=== PATIENT | female | born 1955 | race Caucasian/White ===

== ENCOUNTER 2024-11-29 03:43 | Emergency (ER) | payer MEDICARE, OTHER, SELFPAY ==
--- NOTE | ~2024-11-29 | CT_ITS ---
CT of the Abdomen and Pelvis: Indication: Pain, hematuria Technique: 2.5 mm axial scans were obtained through the abdomen and pelvis following intravenous adm inistration of 100 cc of Omnipaque 350. Dose reduction technique was used on this scan by utilizing a utomated exposure control and iterative reconstruction technique. The dose-length product (DLP) was 1 462.37 mGy-cm. Findings: Scans through the lung bases are unremarkable. Small hiatal hernia present with gastric la p band in place. The liver, spleen, pancreas, gallbladder, adrenals and kidneys are within normal limits. No evidence of aortic aneurysm. No lymphadenopathy. No bowel obstruction or bowel wall thickening. There is no evidence to suggest acute appendicitis. Images through the pelvis were performed. There is diffuse urinary bladder wall thickening. No pelvic mass seen. No ascites. Impression: Cystitis. Correlate with urinalysis. Reviewed, dictated and finalized at [facility]. Impression: Cystitis. Correlate with urinalysis.
--- OUTSIDE RECORDS SUMMARY | 2024-11-29 03:45 | XMS_ITS | Encounter Summary ---
Author Organization [facility] Facility Care Team Providers Care [employer] Name Role Phone Elyssa Liriano MD Primary Care Provider [phone] Encounter Details Date Type Department Care Team (Latest Contact Info) Description 09/17/2015 Orders Only [facility] Provider, MD Alicia [address] [place] [id number] Social History Tobacco Use Types Packs/Day Years Used Date Smoking Tobacco: Never Assessed Comments Unknown Sex and Gender Information Value Date Recorded Sex Assigned at Not on file Legal Sex Female 1:25 PM CDT Gender Identity Not on file Sexual Orientation Not on file documented as of this encounter Plan of Treatment Not on file documented as of this encounter Procedures Procedure Name Priority Date/Time Associated Diagnosis Comments SCAN - LABS 09/20/2015 12:00 AM CDT documented in this encounter Results * SCAN - LABS (09/20/2015 12:00 AM CDT) Narrative 09/20/2015 12:00 AM CDT Ordered by an unspecified provider. 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 04/11/2020 04/11/2020 08/09/2020 3:05 AM C DT documented as of this encounter Care Teams [employer] Relationship Specialty Start Date End Date Elyssa Liriano MD [address] [place] [address] [place] [id number] PCP - General 09/10/17 documented as of this encounter
--- OUTSIDE RECORDS SUMMARY | 2024-11-29 03:45 | XMS_ITS | Referral Summary ---
Author Organization [facility] Address [address] [place] [id number] Care Team Providers Care Senior Quality Technician Name Role Phone Elyssa Liriano MD Primary Care Provider [phone] Encounters Date Type Department Care Team Description 10/26/2024 10:30 AM CDT Office Visit [facility] Internal Medicine [address] [place] [address] [address] [place] [address] Elyssa Liriano MD CKD (chronic kidney disease), stage II (Primary Dx); Dyslipidemia; Hypertensive kidney disease with stage 2 chronic kidney disease; Morbid obesity with BMI of 40.0-44.9, adult ([facility]); ANGÉLICA (obstructive sleep apnea); Type 2 diabetes mellitus with stage 2 chronic kidney disease, without long-term current use of insulin ([facility]); BMI 39.0-39.9,adult from Last 3 Months Allergies Active Allergy Reactions Criticality Noted Date Comments Acetaminophen Itching Low 10/13/2018 itching Hydrocodone-Acetaminophen Itching Low 10/13/2018 itching Medications multivitamin tablet daily Active cholecalciferol (VITAMIN D-3) 2000 unit capsule Take 1 capsule (2,000 Units total) by mouth daily Active cyanocobalamin, vitamin B-12, 1,000 mcg tablet extended release daily Active fexofenadine HCl (KECIA ORAL) Take by mouth Active aspirin 81 mg enteric coated tablet Take 1 tablet (81 mg total) by mouth daily Active atorvastatin (LIPITOR) 20 mg tablet Take 1 tablet (20 mg total) by mouth nightly 100 tablet 1 10/26/2024 Active escitalopram (LEXAPRO) 20 mg tablet Take 1 tablet (20 mg total) by mouth daily 100 tablet 1 10/26/2024 Active semaglutide (OZEMPIC) 0.25 mg or 0.5 mg (2 mg/3 mL) pen injector injection Inject 0.5 mg under the skin once a week 9 mL 1 10/26/2024 Active Active Problems Problem Noted Date Diagnosed Date Cognitive impairment 05/05/2024 Assessment & Plan (05/05/2024 11:46 AM FOOD CART ATTENDANT): Patient with memory issues related to minor issues. Mini-mental exam is 28/30. The patient does not have dementia. It is possible that she has cognitive impairment. Continue to observe Type 2 diabetes mellitus wit h stage 2 chronic kidney disease, without long-term current use of insulin 05/04/2024 Assessment & Plan (10/26/2024 7:31 AM CDT): Hemoglobin A1c 6.5. Continue Ozempic and diet and exercise. Patient needs to have annual eye exam. Assessment & Plan (05/05/2024 11:47 AM FOOD CART ATTENDANT): Patient with new onset diabetes mellitus. We had lengthy discussion about the importance of diet and exercise and weight loss. Patient need not to exceed 2000 calorie daily. She will be started on Ozempic 0.25 mg subQ once a week and increase the dose to 0.5 mg subQ once a week. Side effects explained. Patient needs to have annual eye exam. Repeat blood work before next visit Laceration of left middle fi nger without foreign body without damage to nail 04/19/2024 Assessment & Plan (05/05/2024 11:47 AM FOOD CART ATTENDANT): Healed Assessment & Plan (04/19/2024 9:15 AM FOOD CART ATTENDANT): Patient with laceration to the left middle and ring fingers. The wounds are clean with no erythema or swelling or tenderness or discharge. Seventeen stitches were removed. Recurrent major depressive disorder, in full rem ission 11/08/2023 Assessment & Plan (11/09/2023 11:57 AM CDT): Controlled on Lexapro Pain of right hip 09/30/2022 Assessment & Plan (09/30/2022 3:46 PM CDT): Patient with right hip pain after a fall. She has localized tenderness in the area. She is ambulating without difficulty. Will start her on Mobic 15 mg daily. Patient will follow-up with the chiropractor. The patient was advised to call us back in couple of weeks if she has persistent symptoms. Preoperative clearance 05/07/2022 Assessment & Plan (05/07/2022 4:48 PM FOOD CART ATTENDANT): Patient is mild risk for surgery. She is clear for plantar fasciitis surgery. Right sided sciatica 02/24/2021 Assessment & Plan (03/04/2021 12:46 PM CDT): Patient will be started on physical therapy. She will continue baclofen as needed. Patient to call us for persistent pain. Morbid obesity with BMI of 40.0-44.9, adult 11/21 Assessment & Plan (10/26/2024 7:31 AM CDT): BMI Follow-up includes: nutrition counseling. The patient was advised to exercise 5 times a week for 30 minutes each time. We discussed low calorie diet. Discussed lifestyle changes. Assessment & Plan (05/05/2024 7:45 AM FOOD CART ATTENDANT): BMI Follow-up includes: nutrition counseling. The patient was advised to exercise 5 times a week for 30 minutes each time. We discussed low calorie diet. Discussed lifestyle changes. Assessment & Plan (11/09/2023 11:56 AM CDT): BMI Follow-up includes: nutrition counseling. The patient was advised to exercise 5 times a week for 30 minutes each time. We discussed low calorie diet. Discussed lifestyle changes. Assessment & Plan (08/28/2022 7:55 AM CDT): BMI Follow-up includes: nutrition counseling. The patient was advised to exercise 5 times a week for 30 minutes each time. We discussed low calorie diet. Discussed lifestyle changes. Assessment & Plan (01/14/2022 12:35 PM CDT): BMI Follow-up includes: nutrition counseling. The patient was advised to exercise 5 times a week for 30 minutes each time. We discussed low calorie diet. Discussed lifestyle changes. Assessment & Plan (10/03/2021 10:44 AM CDT): BMI Follow-up includes: nutrition counseling. The patient was advised to exercise 5 times a week for 30 minutes each time. We discussed low calorie diet. Discussed lifestyle changes. Assessment & Plan (07/03/2021 11:49 AM FOOD CART ATTENDANT): BMI Follow-up includes: nutrition counseling. The patient was advised to exercise 5 times a week for 30 minutes each time. We discussed low calorie diet. Discussed lifestyle changes. Assessment & Plan (03/04/2021 12:48 PM CDT): BMI Follow-up includes: nutrition counseling. The patient was advised to exercise 5 times a week for 30 minutes each time. We discussed low calorie diet. Discussed lifestyle changes. Assessment & Plan (12/03/2020 11:36 AM CDT): BMI Follow-up includes: nutrition counseling. The patient was advised to exercise 5 times a week for 30 minutes each time. We discussed low calorie diet. Discussed lifestyle changes. Skin rash 09/02/2020 Assessment & Plan (09/02/2020 11:37 AM CDT): Patient has diffuse maculopapular rash which sounds like allergic reaction. She received Kenalog 40 mg IM and started on prednisone in a tapering does and continue Benadryl as needed for the itching. The patient was advised to call if she has persistent symptoms Sore throat 09/02/2020 Assessment & Plan (09/02/2020 11:39 AM CDT): Throat examination is completely normal. Patient can take antihistamine as needed. Patient to call if she has persistent symptoms or if she develops fever or other symptoms. Dyspnea 06/07/2020 Assessment & Plan (06/07/2020 2:35 PM FOOD CART ATTENDANT): The patient did have PFTs performed which were normal. She did not desaturate while walking. I discussed the PFT results with her. She is improving slowly. ANGÉLICA (obstructive sleep apnea) 05/10/2020 Assessment & Plan (10/26/2024 7:31 AM CDT): Patient uses CPAP machine Assessment & Plan (11/09/2023 11:56 AM CDT): Patient uses CPAP machine Assessment & Plan (08/28/2022 7:55 AM CDT): Patient uses CPAP machine Assessment & Plan (10/03/2021 10:17 AM CDT): Patient uses CPAP machine on regular basis Assessment & Plan (07/03/2021 11:48 AM FOOD CART ATTENDANT): Advised to follow-up with the sleep specialist and use CPAP machine on regular basis Assessment & Plan (03/04/2021 12:46 PM CDT): Patient is followed by the sleep specialist Assessment & Plan (12/03/2020 11:36 AM CDT): Followed by the sleep specialist Assessment & Plan (06/07/2020 2:34 PM FOOD CART ATTENDANT): The patient was diagnosed with ANGÉLICA over 8 years ago and has not used CPAP in recent memory. I will order a home sleep test to confirm the diagnosis and then obtain an auto titrating CPAP unit for her. Assessment & Plan (05/10/2020 10:33 AM FOOD CART ATTENDANT): The patient will need a nocturnal polysomnogram with split night protocol if necessary, no MSLT. If insurance not approve in-lab sleep study the patient may proceed with a home sleep test. The patient would like to hold off on this testing at this time. COVID-19 virus infection 05/10/2020 Assessment & Plan (06/20/2020 4:57 PM FOOD CART ATTENDANT): Managed by the crab picker Assessment & Plan (06/07/2020 2:34 PM FOOD CART ATTENDANT): The patient continues to have a dry cough and her fatigue is still present but improving. Assessment & Plan (05/10/2020 10:33 AM FOOD CART ATTENDANT): I have ordered a PFT, echo and 6 minutes walk test. Varicose veins of both lower extremities 020 Assessment & Plan (10/26/2019 11:13 AM CDT): Asymptomatic Hypertensive kidney disease with stage 2 chronic kidney disease 01/24/2019 Assessment & Plan (10/26/2024 7:30 AM CDT): Continue low-salt diet and encouraged weight loss Assessment & Plan (05/05/2024 7:45 AM FOOD CART ATTENDANT): Continue low-salt diet and encouraged weight loss Assessment & Plan (11/09/2023 11:56 AM CDT): Continue low-salt diet and encouraged weight loss Assessment & Plan (08/28/2022 7:55 AM CDT): Continue low-salt diet and encouraged weight loss Assessment & Plan (05/07/2022 4:26 PM FOOD CART ATTENDANT): Continue low-salt diet Assessment & Plan (01/14/2022 12:35 PM CDT): Controlled without medications. Encouraged low-salt diet and weight loss Assessment & Plan (10/03/2021 10:44 AM CDT): Blood pressure is stable without medications. Discussed the importance of low- salt diet and exercise and weight loss Assessment & Plan (07/03/2021 11:49 AM FOOD CART ATTENDANT): Stable without medications. Continue low-salt diet Assessment & Plan (03/04/2021 12:45 PM CDT): Continue current medications. Discussed low-salt diet. Discussed exercise on regular basis. Will continue to monitor Assessment & Plan (12/03/2020 11:36 AM CDT): Blood pressure is stable without medications. Continue low-salt diet and we discussed weight loss Assessment & Plan (01/25/2020 12:05 PM CDT): Blood pressure is controlled without medications. Continue low-salt diet Assessment & Plan (10/26/2019 11:12 AM CDT): Continue low-salt diet and we discussed weight loss with diet and exercise. Assessment & Plan (07/26/2019 10:02 AM FOOD CART ATTENDANT): Stable without medications Assessment & Plan (04/26/2019 10:46 AM FOOD CART ATTENDANT): Controlled without medications Assessment & Plan (01/24/2019 10:23 AM CDT): Continue current medications. Discussed low-salt diet. Discussed exercise on regular basis. Will continue to monitor Overweight 01/24/2019 Assessment & Plan (04/26/2019 10:47 AM FOOD CART ATTENDANT): The patient lost more weight with her diet and she feels great. Assessment & Plan (01/24/2019 10:23 AM CDT): The patient lost large amount of weight on her current weight loss program and she feels well. I encouraged her to continue with the program and we will continue to monitor. Bronchitis 10/21/2018 Assessment & Plan (10/21/2018 12:50 PM CDT): Patient has persistent cough. We will start her on Robitussin AC and prednisone in a tapering does and she will call for persistent symptoms Former smoker 2018 Overview (10/18/2018): Used to smoke pack of cigarettes a day. Smoked for 6 years. Quit smoking in 1984. Anxiety 10/15/2017 Assessment & Plan (01/14/2022 12:34 PM CDT): Controlled on Lexapro Assessment & Plan (10/21/2018 12:49 PM CDT): Controlled on current medication CKD (chronic kidney disease), stage II 8 Assessment & Plan (10/26/2024 7:30 AM CDT): Renal function is stable. Continue to monitor Assessment & Plan (05/05/2024 7:45 AM FOOD CART ATTENDANT): Renal function is stable. Continue to monitor Assessment & Plan (11/09/2023 11:56 AM CDT): Renal function is stable. Continue to monitor Assessment & Plan (05/07/2022 4:25 PM FOOD CART ATTENDANT): Renal function is stable. Continue to monitor Assessment & Plan (01/14/2022 12:34 PM CDT): Stable mild chronic kidney disease Assessment & Plan (10/03/2021 10:17 AM CDT): Stable mild chronic kidney disease Assessment & Plan (03/04/2021 12:45 PM CDT): Renal function is stable Assessment & Plan (10/26/2019 11:11 AM CDT): Mild chronic kidney disease with no change in will continue to monitor Assessment & Plan (07/26/2019 10:02 AM FOOD CART ATTENDANT): Mild chronic kidney disease with no change Assessment & Plan (04/26/2019 10:46 AM FOOD CART ATTENDANT): Mild chronic kidney disease and will continue to monitor Assessment & Plan (01/24/2019 10:22 AM CDT): Mild chronic kidney disease and will continue to monitor Assessment & Plan (10/21/2018 12:49 PM CDT): No change and will continue to monitor Low back pain 06/14/2017 Assessment & Plan (11/26/2022 2:00 PM CDT): Patient with right lower back pain with tenderness over the right infraspinatus area for the last month after a recent fall. Will obtain x-ray of the lumbar area. Will start her on baclofen 10 mg b.i.d. p.r.n.. Side effects were explained. Will start her on physical therapy. Patient to call back in 1 month for persistent symptoms and will see if we need to proceed with MRI at that point. Assessment & Plan (01/24/2019 10:22 AM CDT): Asymptomatic Primary osteoarthritis of right shoulder 017 Attention-deficit hyperactiv ity disorder, predominantly inattentive type 09/02/2015 Assessment & Plan (11/09/2023 11:56 AM CDT): Patient is retired. She does not take the medication. She does not feel she needs to be on medications at this time. She is asymptomatic Assessment & Plan (08/28/2022 7:55 AM CDT): Controlled on Concerta Assessment & Plan (05/07/2022 4:25 PM FOOD CART ATTENDANT): Controlled on Concerta Assessment & Plan (01/14/2022 12:34 PM CDT): Resume Concerta Assessment & Plan (10/03/2021 10:43 AM CDT): Patient stop Concerta and she feels fine without the medication Assessment & Plan (07/03/2021 11:49 AM FOOD CART ATTENDANT): Controlled on Concerta Assessment & Plan (03/04/2021 12:45 PM CDT): Controlled on Concerta Assessment & Plan (12/03/2020 11:36 AM CDT): Controlled on Concerta Assessment & Plan (09/02/2020 11:38 AM CDT): Controlled on Concerta Assessment & Plan (06/20/2020 4:57 PM FOOD CART ATTENDANT): Continue Concerta Assessment & Plan (01/25/2020 12:05 PM CDT): Controlled on Concerta. Assessment & Plan (10/26/2019 11:11 AM CDT): Controlled on Concerta Assessment & Plan (07/26/2019 10:02 AM FOOD CART ATTENDANT): Controlled on Concerta Assessment & Plan (04/26/2019 10:46 AM FOOD CART ATTENDANT): The patient noticed decrease in her attention and concentration. We will increase Concerta to 36 mg daily. Will continue to monitor. Assessment & Plan (01/24/2019 10:22 AM CDT): Controlled on Concerta Assessment & Plan (10/21/2018 12:49 PM CDT): Controlled on Concerta and will continue to monitor Dyslipidemia 09/02/2015 Assessment & Plan (10/26/2024 7:30 AM CDT): Controlled on current medications. Continue low-fat diet. Will continue to monitor . Assessment & Plan (05/05/2024 7:45 AM FOOD CART ATTENDANT): Controlled on current medications. Continue low-fat diet. Will continue to monitor . Assessment & Plan (11/09/2023 11:56 AM CDT): Controlled on current medications. Continue low-fat diet. Will continue to monitor . Assessment & Plan (08/28/2022 7:55 AM CDT): Controlled on current medications. Continue low-fat diet. Will continue to monitor . Assessment & Plan (05/07/2022 4:25 PM FOOD CART ATTENDANT): Controlled on current medications. Continue low-fat diet. Will continue to monitor . Assessment & Plan (01/14/2022 12:34 PM CDT): Controlled on current medications. Continue low-fat diet. Will continue to monitor . Assessment & Plan (10/03/2021 10:17 AM CDT): Controlled on current medications. Continue low-fat diet. Will continue to monitor . Assessment & Plan (07/03/2021 11:49 AM FOOD CART ATTENDANT): Controlled on current medications. Continue low-fat diet. Will continue to monitor . Assessment & Plan (03/04/2021 12:46 PM CDT): Controlled on current medications. Continue low-fat diet. Will continue to monitor . Assessment & Plan (12/03/2020 11:36 AM CDT): Controlled on current medications. Continue low-fat diet. Will continue to monitor . Assessment & Plan (09/02/2020 11:37 AM CDT): Controlled on current medications. Continue low-fat diet. Will continue to monitor . Assessment & Plan (06/20/2020 4:57 PM FOOD CART ATTENDANT): Controlled on current medications. Continue low-fat diet. Will continue to monitor . Assessment & Plan (01/25/2020 12:05 PM CDT): Controlled on current medications. Continue low-fat diet. Will continue to monitor . Assessment & Plan (10/26/2019 11:12 AM CDT): Controlled on current medications. Continue low-fat diet. Will continue to monitor . Assessment & Plan (07/26/2019 10:40 AM FOOD CART ATTENDANT): LDL is 68. We will lower atorvastatin to 20 mg q.h.s.. Assessment & Plan (04/26/2019 10:46 AM FOOD CART ATTENDANT): Controlled on current medications. Continue low-fat diet. Will continue to monitor . Assessment & Plan (01/24/2019 10:22 AM CDT): Controlled on current medications. Continue low-fat diet. Will continue to monitor . Assessment & Plan (10/21/2018 12:49 PM CDT): Controlled on current medications. Continue low-fat diet. Will continue to monitor . Immunizations Immunization Administration Dates Next Due DTaP 04/07/2016,01/29/2016 Influenza, Quadrivalent, Ivelisse l Culture-based MDCK, Preservative Free, Antibiotic Free, Intramuscular 03/23/2022 Influenza, Quadrivalent, Spl it, Intramuscular 04/05/2017,04/07/2016 Influenza, Quadrivalent, Spl it, Preservative Free, Intramuscular 03/04/2021 Influenza, Trivalent, High D ose, Split, Preservative Free, Intramuscular 01/18/2024 Influenza, Unspecified 04/02/2023(Deferr ed: Patient decision),02/21/2019 Pfizer SARS-CoV-2 Monovalent Vaccination (12+ Yrs) PURPLE 10/06/2020,09/16/2020 Pneumococcal Conjugate Pcv20 11/04/2023 RSV Vaccine, Pref, Recombina nt, Subunit, Adjuvanted, PF, IM (Arexvy) 01/18/2024 Tdap 01/29/2016,01/01/2006 ZOSTER Recombinant 04/30/2022,02/19/2022 Social History Tobacco Use Types Packs/Day Years Used Date Smoking Tobacco: Former Cigarettes Q uit: 1983 Passive Smoke Exposure: Past Smokeless Tobacco: Never Tobacco Cessation:Counseling Given: Not Answered Alcohol Use Standard Drinks/Week Comments Yes 0 (1 standard drink = 0.6 oz pur e alcohol) socially AUDIT-C Answer Date Recorded Q1: How often do you have a drink containing alc ohol? Monthly or less 10/26/2024 Q2: How many drinks containi ng alcohol do you have on a typical day when you are drinking? 1 or 2 10/26/2024 Q3: How often do you have si x or more drinks on one occasion? Never 10/26/2024 PHQ-2 Answer Date Recorded PHQ-2 Total Score (If total score is 3 or more points, staff should administer the PHQ-9) 0 05/05/2024 Comments No Sex and Gender Information Value Date Recorded Sex Assigned at Not on file Legal Sex Female 1:25 PM CDT Gender Identity Not on file Sexual Orientation Not on file Last Filed Vital Signs Vital Sign Reading Time Taken Comments Blood Pressure 128/80 10/26/2024 10:12 AM CDT Pulse 63 10/26/2024 10:12 AM CDT Temperature 36.1 C (97 F) 10/26/2024 10:12 AM CDT Respiratory Rate 18 10/26/2024 10:12 AM CDT Oxygen Saturation 97% 10/26/2024 10:12 AM CDT Inhaled Oxygen Concentration - - Weight 117.9 kg (260 lb) 10/26/2024 10:12 AM CDT Height 172.7 cm (5' 8) 10/26/2024 10:12 AM CDT Body Mass Index 39.53 10/26/2024 10:12 AM CDT Plan of Treatment Not on file Procedures Procedure Name Priority Date/Time Associated Diagnosis Comments ERYTHROCYTE SEDIMENTATION RATE Routine 10/23/2024 9:44 AM CDT VITAMIN B12 Routine 10/23/2024 9:44 AM CDT TSH Routine 10/23/2024 9:44 AM CDT T4, FREE Routine 10/23/2024 9:44 AM CDT ALBUMIN CREATININE RATIO, URINE Routine 10/23/2024 9:44 AM CDT Type 2 diabetes mellitus with stage 2 chronic kidney disease, without long-term current use of insulin (HCC) CBC WITH AUTO DIFFERENTIAL Routine 10/23/2024 9:44 AM CDT Type 2 diabetes mellitus with stage 2 chronic kidney disease, without long-term current use of insulin (HCC) COMPREHENSIVE METABOLIC PANEL Routine 10/23/2024 9:44 AM CDT Type 2 diabetes mellitus with stage 2 chronic kidney disease, without long-term current use of insulin (HCC) HEMOGLOBIN A1C Routine 10/23/2024 9:44 AM CDT Type 2 diabetes mellitus with stage 2 chronic kidney disease, without long-term current use of insulin (HCC) LIPID PANEL Routine 10/23/2024 9:44 AM CDT Dyslipidemia SCREENING MAMMOGRAM BILATERAL W JOSE CARLOS Schedule Routine, Read Routine (OP Routine) 04/25/2024 7:20 AM FOOD CART ATTENDANT Screening mammogram for breast cancer DEXA AXIAL SKELETON BONE DENSITY 1 OR MORE SITES Schedule Routine, Read Routine (OP Routine) 11/24/2023 11:16 AM CDT Postmenopausal HEPATITIS C ANTIBODY Routine 03/04/2021 11:16 AM CDT Encounter for hepatitis C screening test for low risk patient COLONOSCOPY Routine 12/29/2019 THINPREP PAP Routine 07/10/2014 2:00 PM FOOD CART ATTENDANT from Last 3 Months or Most Recently Relevant to Health Maintenance Results * (ABNORMAL) CBC with auto differential (10/23/2024 9:44 AM CDT) WBC 8.3 3.8 - 10.8 Thousand/u L [facility] RBC, POC 5.47(H) 3.80 - 5.10 Million/uL [facility] Hgb 15.5 11.7 - 15.5 g/dL [facility] Hct 51.3(H) 35.0 - 45.0 % [facility] MCV 93.8 80.0 - 100.0 fL [facility] MCH 28.3 27.0 - 33.0 pg [facility] MCHC 30.2(L) 32.0 - 36.0 g/dL [facility] Comment: For adults, a slight decrease in the calculated MCHC value (in the range of 30 to 32 g/dL) is most likely not clinically significant; however, it should be interpreted with caution in correlation with other red cell parameters and the patient's clinical condition. Rdw 14.4 11.0 - 15.0 % [facility] Neutrophils, abs 4,067 1,500 - 7,800 cells/uL [facility] Lymphocytes, abs 2,913 850 - 3,900 cells/uL [facility] Monocyte abs 606 200 - 950 cells/uL [facility] Eosinophils, abs 647(H) 15 - 500 cells/uL [facility] Basophils, abs 66 0 - 200 cells/uL [facility] Neutrophils 49 % [facility] Lymphocyte pct 35.1 % [facility] Monocytes 7.3 % [facility] Eosinophils 7.8 % [facility] Basophils 0.8 % [facility] Platelets TNP Thousand/u L [facility] Comment: TEST(S) NOT PERFORMED: PLATELET COUNT MPV Unable to report due to significant platelet clumping. Platelet estimate appears normal. Blood 10/23/2024 9:44 AM CDT 10/23/2024 9:45 AM CDT Narrative [facility] - 10/24/2024 8:42 AM CDT FASTING:YES FASTING: YES Elyssa Liriano MD LAB BLOOD ORDERABLES Final Result [facility] [address] [id number] * Albumin Creatinine Ratio, Urine (10/23/2024 9:44 AM CDT) Pathologist [facility] Creatinine, ur 174 20 - 275 mg/dL [facility] Microalbumin, ur 1.2 See Note: mg/dL [facility] Comment: Reference Range: Reference Range Not established Microalbumin/creat ratio 7 <30 mg/g creat [facility] Comment: The ADA defines abnormalities in albumin excretion as follows: Albuminuria Category Result (mg/g creatinine) Normal to Mildly increased <30 Moderately increased 30-299 Severely increased > OR = 300 The ADA recommends that at least two of three specimens collected within a 3-6 month period be abnormal before considering a patient to be within a diagnostic category. Urine 10/23/2024 9:44 AM CDT 10/23/2024 9:45 AM CDT Narrative [facility] - 10/24/2024 8:42 AM CDT FASTING:YES FASTING: YES Elyssa Liriano MD LAB URINE ORDERABLES Final Result Performing Organization Address [facility] de Phone Number [facility] [address] [place] [address] * Erythrocyte sedimentation rate (10/23/2024 9:44 AM CDT) Erythrocyte sedimentation rate 2 < OR = 30 mm/h [facility] 10/23/2024 9:44 AM CDT 10/23/2024 9:45 AM CDT Narrative QUEST - 10/24/2024 8:42 AM CDT FASTING:YES FASTING: YES Elyssa Liriano MD LAB BLOOD ORDERABLES Final Result Performing Organization Address [facility] de Phone Number QUEST [facility] [address] [place] [address] * TSH (10/23/2024 9:44 AM CDT) TSH 1.22 0.40 - 4.50 mIU/L [facility] 10/23/2024 9:44 AM CDT 10/23/2024 9:45 AM CDT Narrative QUEST - 10/24/2024 8:42 AM CDT FASTING:YES FASTING: YES Elyssa Liriano MD LAB BLOOD ORDERABLES Final Result Performing Organization Address [facility]/ZIP Co de Phone Number QUEST [facility] [address] [facility] [place], [place] [address] * T4, free (10/23/2024 9:44 AM CDT) [facility] T4 1.1 0.8 - 1.8 ng/dL [facility] 10/23/2024 9:44 AM CDT 10/23/2024 9:45 AM CDT Narrative QUEST - 10/24/2024 8:42 AM CDT FASTING:YES FASTING: YES Elyssa Liriano MD LAB BLOOD ORDERABLES Final Result Performing Organization Address City/[facility] Co de Phone Number QUEST [facility] [address] [place] [address] * (ABNORMAL) Hemoglobin A1c (10/23/2024 9:44 AM CDT) [facility] Hgb A1C 6.5(H) <5.7 % of total Hgb [facility] [place] Comment: For someone without known diabetes, a hemoglobin A1c value of 6.5% or greater indicates that they may have diabetes and this should be confirmed with a follow-up test. For someone with known diabetes, a value <7% indicates that their diabetes is well controlled and a value greater than or equal to 7% indicates suboptimal control. A1c targets should be individualized based on duration of diabetes, age, comorbid conditions, and other considerations. Currently, no consensus exists regarding use of hemoglobin A1c for diagnosis of diabetes for children. Blood 10/23/2024 9:44 AM CDT 10/23/2024 9:45 AM CDT Narrative QUEST - 10/24/2024 8:42 AM CDT FASTING:YES FASTING: YES Elyssa Liriano MD LAB BLOOD ORDERABLES Final Result [facility] [address] [place] [address] * Vitamin B12 (10/23/2024 9:44 AM CDT) Vitamin B12 428 200 - 1,100 pg/mL [facility] 10/23/2024 9:44 AM CDT 10/23/2024 9:45 AM CDT Narrative QUEST - 10/24/2024 8:42 AM CDT FASTING:YES FASTING: YES Elyssa Liriano MD LAB BLOOD ORDERABLES Final Result [facility] [address] [facility] [place] [address] * (ABNORMAL) Lipid panel (10/23/2024 9:44 AM CDT) Pathologist [facility] Cholesterol 164 <200 mg/dL [facility] HDL 53 > OR = 50 mg/dL [facility] Triglycerides 188(H) <150 mg/dL [facility] LDL 83 mg/dL (calc) [facility] Comment: Reference range: <100 Desirable range <100 mg/dL for primary prevention; <70 mg/dL for patients with CHD or diabetic patients with > or = 2 CHD risk factors. LDL-C is now calculated using the Eusebio-Ray calculation, which is a validated novel method providing better accuracy than the Friedewald equation in the estimation of LDL-C. Eusebio LAY et al. DIMPLE. 2013;310(19): 7208-6178 (http://education.[employer].RackWare/faq/MRT041) Chol/HDL ratio 3.1 <5.0 (calc) [facility] Non-HDL, (LDL+VLDL) 111 <130 mg/dL (calc) [facility] Comment: For patients with diabetes plus 1 major ASCVD risk factor, treating to a non-HDL-C goal of <100 mg/dL (LDL-C of <70 mg/dL) is considered a therapeutic option. Blood 10/23/2024 9:44 AM CDT 10/23/2024 9:45 AM CDT Narrative QUEST - 10/24/2024 8:42 AM CDT FASTING:YES FASTING: YES us Elyssa Liriano MD LAB BLOOD ORDERABLES Final Result [facility] [address] [place] [address] * (ABNORMAL) Comprehensive metabolic panel (10/23/2024 9:44 AM CDT) Glucose 157(H) 65 - 99 mg/dL [facility] Comment: Fasting reference interval For someone without known diabetes, a glucose value >125 mg/dL indicates that they may have diabetes and this should be confirmed with a follow-up test. BUN 16 7 - 25 mg/dL [facility] Creatinine 0.93 0.50 - 1.05 mg/dL [facility] eGFR 67 > OR = 60 mL/min/1.7 3m2 [facility] BUN/creat ratio SEE NOTE: 6 - 22 (calc) [facility] Comment: Not Reported: BUN and Creatinine are within reference range. Sodium 138 135 - 146 mmol/L [facility] Potassium, pl 4.6 3.5 - 5.3 mmol/L [facility] Chloride 101 98 - 110 mmol/L [facility] CO2 26 20 - 32 mmol/L [facility] Calcium 9.7 8.6 - 10.4 mg/dL [facility] Protein, sr 7.0 6.1 - 8.1 g/dL [facility] Albumin 4.5 3.6 - 5.1 g/dL [facility] GLOBULIN 2.5 1.9 - 3.7 g/dL (calc) [facility] Alb/glob ratio 1.8 1.0 - 2.5 (calc) [facility] Bilirubin, total 0.6 0.2 - 1.2 mg/dL [facility] Alk phos 34(L) 37 - 153 U/L [facility] AST 26 10 - 35 U/L [facility] ALT (SGPT) 24 6 - 29 U/L [facility] Blood 10/23/2024 9:44 AM CDT 10/23/2024 9:45 AM CDT Narrative QUEST - 10/24/2024 8:42 AM CDT FASTING:YES FASTING: YES Elyssa Liriano MD LAB BLOOD ORDERABLES Final Result [facility] [address] [facility] [place] [address] * Screening Mammogram Bilateral W Jose Carlos (04/25/2024 7:20 AM FOOD CART ATTENDANT) Anatomical Region Laterality Modality Breast Bilateral Mammography Impressions 04/25/2024 8:54 AM FOOD CART ATTENDANT BI-RADS ATLAS category (overall): 1 - Negative There is no mammographic evidence of malignancy. A 1 year screening mammogram is recommended. The patient has been or will be contacted. We recommend annual screening mammography for women at average risk of breast cancer beginning at age 40, based on guidelines of the [place] [employer] (ACR Practice Parameter for the Performance of Screening and Diagnostic Mammography) and [place] [employer]. For women with and elevated risk of breast cancer, please refer to the ACR Practice Parameter for specific screening recommendations. The patient will be entered into a reminder system with a target due date of 1 year for her next screening exam. Narrative 04/25/2024 8:54 AM FOOD CART ATTENDANT Screening Mammogram Bilateral W Jose Carlos: 04/25/24 The study was acquired using full field digital technology and interpreted from soft copy. 2D digital mammographic views, as well as 3D digital tomosynthesis were performed in the CC and MLO projections. CLINICAL: Screening mammogram for breast cancer. No relevant medical history has been documented for this patient. History of breast cancer in Mother, Sister. COMPARISONS: 04/20/2023 Screening Mammogram Bilateral W Jose Carlos 01/19/2022 Screening Mammogram Bilateral W Jose Carlos 11/22/2020 Screening Mammogram Bilateral W Jose Carlos 09/30/2018 Screening Mammogram Bilateral W Jose Carlos 08/26/2017 Screening Mammogram Bilateral W Jose Carlos BREAST TISSUE: There are scattered areas of fibroglandular density. FINDINGS: No suspicious masses, suspicious calcifications, or other suspicious findings are seen within either breast. There has been no suspicious change. Elyssa Liriano MD IM MAMMO PROCEDURES Final Result * Dexa Axial Skeleton Bone Density 1 or 2 Site (11/24/2023 11:16 AM CDT) Anatomical Region Laterality Modality Body N/A Mammography 11/24/2023 11:5 2 AM CDT Narrative 11/24/2023 11:54 AM CDT EXAM DESCRIPTION: DEXA AXIAL SKELETON BONE DENSITY 1 OR MORE SITES REASON FOR STUDY: 68 y/o year old F with given history of: Post menopausal status. History of parent with hip fracture and 3+ alcoholic drinks per day. Patient takes vitamin-D. Tank Cleaner/Model: Earth Sky A (S/N [id number]) CLINICAL INFORMATION: Current height: 68 inches Maximum height: 68.5 inches Weight: 268 pounds Risk factors: Parent with hip fracture and drinking 3+ alcoholic drinks per day. COMPARISON: None available. FINDINGS: Left forearm Radius 33% BMD is 0.747 g/cm2 T-score is 0.9 LEFT HIP: Total BMD is 1.185 g/cm2 T-score is 2.0 Femoral neck BMD is 0.909 g/cm2 T-score is 0.5 FRAX: FRAX not reported due to T-scores of hip, femoral neck and/or spine being at or above -1.0 (Normal). IMPRESSION: Normal bone mass REFERENCE: Bone mineral density: T-Score: Normal (T-score above or = -1.0) Low bone mass (T-score between -1.0 and -2.5) replaces the previously used term osteopenia Osteoporosis (T-score = or below -2.5) Z-Score: Within the expected range for age (Z-score above -2.0) Below the expected range for age (Z-score is -2.0 or below) Please see below follow up recommendations. Medical evaluation for secondary causes of low bone mineral density may be appropriate. FRAX is a World Health Organization validated fracture risk assessment tool that calculates a person's 10 year probability of a major osteoporosis related fracture and hip fracture. According to the National Osteoporosis Foundation guidelines, postmenopausal women and men age 50 or older with low bone mass and a 10 year probability of a major osteoporosis related fracture = or greater than 20% or a 10 year probability of a hip fracture = or greater than 3% should be considered for pharmacological treatment for the prevention of osteoporosis. For further information, including treatment recommendations, please refer to the 2019 ISCD Official Positions (http://www.iscd.org) and the NOF's Clinician's Guide to Prevention and Treatment of Osteoporosis (http://www.nof.org/professionals/clinical-guidelines) THIS IS AN ELECTRONICALLY VERIFIED FINAL REPORT 11/24/2023 11:54 AM - Electronically signed by Zoya Andre M.D. TW: Report ID: [id number] Reading Location: [place] [address] Procedure Note Zoya Andre MD - 11/24/2023 EXAM DESCRIPTION: DEXA AXIAL SKELETON BONE DENSITY 1 OR MORE SITES REASON FOR STUDY: 68 y/o year old F with given history of: Post menopausal status. History of parent with hip fracture and 3+ alcoholic drinks per day. Patient takes vitamin-D. Tank Cleaner/Model: H[employer] Horizon A (S/N [id number]) CLINICAL INFORMATION: Current height: 68 inches Maximum height: 68.5 inches Weight: 268 pounds Risk factors: Parent with hip fracture and drinking 3+ alcoholic drinksper day. COMPARISON: None available. FINDINGS: Left forearm Radius 33% BMD is 0.747 g/cm2 T-score is 0.9 LEFT HIP: Total BMD is 1.185 g/cm2 T-score is 2.0 Femoral neck BMD is 0.909 g/cm2 T-score is 0.5 FRAX: FRAX not reported due to T-scores of hip, femoral neck and/or spine beingat or above -1.0 (Normal). IMPRESSION: Normal bone mass REFERENCE: Bone mineral density: T-Score: Normal (T-score above or = -1.0) Low bone mass (T-score between -1.0 and -2.5) replaces thepreviously used term osteopenia Osteoporosis (T-score = or below -2.5) Z-Score: Within the expected range for age (Z-score above -2.0) Below the expected range for age (Z-score is -2.0 or below) Please see below follow up recommendations. Medical evaluation forsecondary causes of low bone mineral density may be appropriate. FRAX is a World Health Organization validated fracture risk assessmenttool that calculates a person's 10 year probability of a major osteoporosisrelated fracture and hip fracture. According to the National OsteoporosisFoundation guidelines, postmenopausal women and men age 50 or older with low bonemass and a 10 year probability of a major osteoporosis related fracture = or greater than 20% or a 10 year probability of a hip fracture = or greaterthan 3% should be considered for pharmacological treatment for the preventionof osteoporosis. For further information, including treatment recommendations, please referto the 2019 ISCD Official Positions (http://www.iscd.org) and the NOF's Clinician's Guide to Prevention and Treatment of Osteoporosis (http://www.nof.org/professionals/clinical-guidelines) THIS IS AN ELECTRONICALLY VERIFIED FINAL REPORT 11/24/2023 11:54 AM - Electronically signed by Zoya Andre M.D. TW: TW Report ID: [id number] Reading Location: [id number] Elyssa Liriano MD [facility] DXA PROCEDURES Final Re sult * Hepatitis C antibody (03/04/2021 11:16 AM CDT) Pathologist [facility] Hep C Ab Nonreactive Nonreactive [facility] Comment: Interpretive Data Nonreactive: Antibodies to HCV not detected. Does NOT exclude the possibility of recent exposure to HCV. Equivocal: Equivocal for HCV antibodies. Supplemental molecular testing will be automatically performed to determine infection status in accordance with current CDC screening recommendations. Reactive: Positive for HCV antibodies. This may represent current or past HCV infection. Supplemental molecular testing will be automatically performed to determine current infection status in accordance with current CDC screening recommendations. Interpretive data was last revised on 2019. Blood 03/04/2021 11:1 6 AM CDT 03/04/2021 11:18 AM CDT Elyssa Liriano MD LAB MICROBIOLOGY - GENERAL ORDERABLES Edited Result - Final [facility] [address] [facility] Department [place] [address] * Colonoscopy (12/29/2019) Anatomical Region Laterality Modality Other Narrative 12/29/[address] David repeat in 10 years Historical Provider ENDOSCOPY PROCEDURES Meka l Result * ThinPrep Pap (07/10/2014 2:00 PM FOOD CART ATTENDANT) Thin Prep Pap Smear SEE BELOW () 07/16 4:35 PM FOOD CART ATTENDANT [facility] HISTORICAL RESULTS Comment: Multi Operation Machine Operator ThinPrep Cytology Final Report ThinPrep Pap Specimen Source Cervix/Endocervix Specimen Adequacy Satisfactory for interpretation, endocervical cells (transformation zone) not present. Interpretation Negative for intraepithelial lesion or malignancy. 07/16/14 Art History Professor: LUKE Luevano([facility]) 07/16/14 Verified By: LUKE Luevano([facility]) electronic signature [facility], Department of Pathology For questions regarding this case, call ext. [phone] CPT Code(s) 52709 Clinical History Clinical Information: LMP: N : N : N IUD: N Hormone Therapy: N Postmenopausal: N Previous surgery date and type: N Hysterectomy: N Chemotherapy: N JUAN Exposure: N Radiation: N Previous Abnormal Pap? Details: N Diagnostic or Screening Pap Test: Screening Performed by [facility], [address] [place] [id number] [email or web address], Jose C Olivares MD - Lab. Director 07/10/2014 2:00 PM FOOD CART ATTENDANT 07/10/2014 3:20 PM FOOD CART ATTENDANT us Elyssa Liriano MD LAB PATHOLOGY ORDERABLES Fi nal Result [facility] HISTORICAL RESULTS from Last 3 Months or Most Recently Relevant to Health Maintenance Insurance MEDICARE [employer] [facility] [place] [id number] MEDICARE Care Teams Senior Quality Technician Relationship Specialty Start Date End Date Elyssa Liriano MD [address] [place] [address] [place] [address] PCP - General 09/10/17
--- OUTSIDE RECORDS SUMMARY | 2024-11-29 03:45 | XMS_ITS | Clinical Summary ---
Author Organization [facility] Address [address] [place] [address] Care Team Providers Care Complaints Coordinator Name Role Phone Elyssa Liriano MD Primary Care Provider [phone] Allergies No known active allergies Medications methylphenidate CR (CONCERTA) 18 MG tablet Take 1 tablet by mouth daily. 02/28/2022 Active atorvastatin (LIPITOR) 20 MG tablet Take 20 mg by mouth daily. Active Vitamin D3, cholecalciferol , 2000 UNIT Tab tablet Take 2,000 Units by mouth daily. Active Multiple Vitamin (MULTIVITAMIN ADULT OR) Take 1 tablet by mouth daily. Active Vitamin E 200 UNITS capsule Take 1 tablet by mouth daily. Active aspirin EC (ECOTRIN) 81 MG tablet Take 81 mg by mouth daily. Active Cinnamon 500 MG Tab Take 1 tablet by mouth daily. Active Ginkgo Biloba 120 MG Cap Take 1 capsule by mouth 2 (two) times daily. Active escitalopram (LEXAPRO) 20 MG tablet Take 20 mg by mouth daily. 10/03/2021 Active acetaminophen-c odeine (TYLENOL #3) 300-30 MG tabletIndicatio ns:Acute Pain < 7 Day Supply Take 1 tablet by mouth every 6 (six) hours as needed for Pain. Indications: Acute Pain < 7 Day Supply 20 tablet 05/29/2022 Active ibuprofen (MOTRIN) 800 MG tablet Take 1 tablet (800 mg total) by mouth every 8 (eight) hours as needed for Pain. 30 tablet 05/29/2022 Active Active Problems No known active problems Social History Tobacco Use Types Packs/Day Years Used Date Smoking Tobacco: Former Cigarettes 1 1982 Smokeless Tobacco: Never Tobacco Cessation:Counseling Given: Not Answered Alcohol Use Standard Drinks/Week Comments Not Currently 0 (1 standard drink = 0.6 oz pur e alcohol) Comments No Sex and Gender Information Value Date Recorded Sex Assigned at Not on file Legal Sex Female 2:46 PM COMPRESS MACHINE OPERATOR Gender Identity Not on file Sexual Orientation Not on file Last Filed Vital Signs Vital Sign Reading Time Taken Comments Blood Pressure 112/56 05/29/2022 12:23 PM COMPRESS MACHINE OPERATOR Pulse 63 05/29/2022 12:23 PM COMPRESS MACHINE OPERATOR Temperature 36.7 C (98 F) 05/29/2022 12:23 PM COMPRESS MACHINE OPERATOR Respiratory Rate 16 05/29/2022 12:23 PM COMPRESS MACHINE OPERATOR Oxygen Saturation 92% 05/29/2022 12:23 PM COMPRESS MACHINE OPERATOR Inhaled Oxygen Concentration - - Weight 124.4 kg (274 lb 4 oz) 05/29/2022 9:00 AM COMPRESS MACHINE OPERATOR Height 172.7 cm (5' 8) 05/29/2022 9:00 AM COMPRESS MACHINE OPERATOR Body Mass Index 41.7 05/29/2022 9:00 AM COMPRESS MACHINE OPERATOR Plan of Treatment Health Maintenance Due Date Last Done Comments Colorectal Cancer Screening Colonoscopy (10 Years) 1957 Hepatitis C 1975 Mammogram Screening 1997 Pneumococcal Vaccine: 50+ Years (1 of 1 - PCV) 2007 RSV Immunization or 60+ Years (1 - Risk 60-74 years 1-dose series) 2017 Annual Medicare Wellness Visit 2022 Dexa Scan (General) 2022 COVID-19 Vaccine ( - season) 2024 10/06/2020, 09/16/2020 DTaP, Tdap and Td Vaccines (5 - Td or Tdap) 04/07/2026 04/07/2016, 01/29/2016, 01/29/2016, Additional history exists Zoster Vaccines Completed 04/30/2022, 02/19/2022 Meningococcal B Vaccine Aged Out No l onger eligible based on patient's age to complete this topic Meningococcal Vaccine Aged Out No aurelia fatuma eligible based on patient's age to complete this topic RSV Immunizations Under 20 Months Aged Out No longer eligible based on patient's age to complete this topic Insurance [facility] MEDICARE [facility] Care Teams Complaints Coordinator Relationship Specialty Start Date End Date Elyssa Liriano MD [address] [facility] [place] [address] PCP - General INTERNAL MEDICINE 05/13/22
--- OUTSIDE RECORDS SUMMARY | 2024-11-29 03:45 | XMS_ITS | Encounter Summary ---
Author Organization [facility] Facility Care Team Providers Care Store Custodian Name Role Phone Elyssa Liriano MD Primary Care Provider [phone] Encounter Details Date Type Department Care Team (Latest Contact Info) Description 09/02/2016 Orders Only [facility] CLINCONV Provider, MD Alicia [address] [place] [address] Social History Tobacco Use Types Packs/Day [...] Date/Time Associated Diagnosis Comments SCAN - LABS 09/04/2016 12:00 AM CDT documented in this encounter Results * SCAN - LABS (09/04/2016 12:00 AM CDT) Narrative 09/04/2016 12:00 AM CDT Ordered by an unspecified provider. Historical Provider Final Res ult documented in this encounter Visit Diagnoses Not on filedocumented in this encounter Additional Health Concerns Infection Onset Date Last Indicated Resolved Time COVID: Suspected 12/18/2019 12/18/2019 01/01/2020 3:05 AM CDT COVID: Suspected 03/28/2020 03/28/2020 03/29/2020 10:26 AM EDITOR BOOK COVID19 03/28/2020 03/28/2020 04/11/2020 3:07 AM EDITOR BOOK COVID: Recovered Comment:Added based on recent COVID infection. 04/11/2020 04/11/2020 08/09/2020 3:05 AM C DT documented as of this encounter Care Teams Store Custodian Relationship Specialty Start Date End Date Elyssa Liriano MD [address] [place] [address] [place] [id number] PCP - General 09/10/17 documented as of this encounter
--- OUTSIDE RECORDS SUMMARY | 2024-11-29 03:46 | XMS_ITS | Encounter Summary ---
Author Organization [facility] Facility Care Team Providers Care Digital Developer Name Role Phone Elyssa Liriano MD Primary Care Provider [phone] Encounter Details Date Type Department Care Team (Latest Contact Info) Description 09/29/2017 Orders Only [facility] CLINCONV Provider, MD Alicia [address] [place] [address] Social History Tobacco Use Types Packs/Day [...] Procedure Name Priority Date/Time Associated Diagnosis Comments PROCEDURE - RESULT 12/13/2017 12 :00 AM CDT documented in this encounter Results * PROCEDURE - RESULT (12/13/2017 12:00 AM CDT) Narrative 12/13/2017 12:00 AM CDT Ordered by an unspecified provider. Historical Provider Final Res ult documented in this encounter Visit Diagnoses Not on filedocumented in this encounter Additional Health Concerns Infection Onset Date Last Indicated Resolved Time COVID: Suspected 12/18/2019 12/18/2019 01/01/2020 3:05 AM CDT COVID: Suspected 03/28/2020 03/28/2020 03/29/2020 10:26 AM FUEL OIL CLERK COVID19 03/28/2020 03/28/2020 04/11/2020 3:07 AM FUEL OIL CLERK COVID: Recovered Comment:Added based on recent COVID infection. 04/11/2020 04/11/2020 08/09/2020 3:05 AM C DT documented as of this encounter Care Teams Digital Developer Relationship Specialty Start Date End Date Elyssa Liriano MD [address] [place] [address] [place] [address] PCP - General 09/10/17 documented as of this encounter
--- OUTSIDE RECORDS SUMMARY | 2024-11-29 03:46 | XMS_ITS | Encounter Summary ---
Author Organization [facility] Care Team Providers Care Battery Repairer Name Role Phone Elyssa Liriano MD Primary Care Provider [phone] Encounter Details Date Type Department Care Team (Latest Contact Info) Description 06/09/2018 Orders Only [facility] CLINCON[facility] ProviderAlicia MD [address] [place] [id number] Social History Tobacco Use Types Packs/Day Years Used Date Smoking Tobacco: Former Comments Unknown Sex and Gender Information Value Date Recorded Sex Assigned at Not on file Legal Sex Female 1:25 PM CDT Gender Identity Not on file Sexual Orientation Not on file documented as of this encounter Plan of Treatment Not on file documented as of this encounter Procedures Procedure Name Priority Date/Time Associated Diagnosis Comments CARDIOLOGY REPORT 06/13/2018 12: 00 AM LUMBER KILN OPERATOR CARDIOLOGY REPORT 06/10/2018 12: 00 AM LUMBER KILN OPERATOR documented in this encounter Results * CARDIOLOGY REPORT (06/13/2018 12:00 AM LUMBER KILN OPERATOR) Anatomical Region Laterality Modality Other Narrative 06/13/2018 12:00 AM LUMBER KILN OPERATOR Ordered by an unspecified provider. Historical Provider MD [facility] PROCE DURES Final Result * CARDIOLOGY REPORT (06/10/2018 12:00 AM LUMBER KILN OPERATOR) Anatomical Region Laterality Modality Other Narrative 06/10/2018 12:00 AM LUMBER KILN OPERATOR Ordered by an unspecified provider. Historical Provider MD [facility] PROCE DURES Final Result documented in this encounter Visit Diagnoses Not on filedocumented in this encounter Additional Health Concerns Infection Onset Date Last Indicated Resolved Time COVID: Suspected 12/18/2019 12/18/2019 01/01/2020 3:05 AM CDT COVID: Suspected 03/28/2020 03/28/2020 03/29/2020 10:26 AM LUMBER KILN OPERATOR COVID19 03/28/2020 03/28/2020 04/11/2020 3:07 AM LUMBER KILN OPERATOR COVID: Recovered Comment:Added based on recent COVID infection. 04/11/2020 04/11/2020 08/09/2020 3:05 AM C DT documented as of this encounter Care Teams Battery Repairer Relationship Specialty Start Date End Date Elyssa Liriano MD [address] [place] [id number] PCP - General 09/10/17 documented as of this encounter
--- OUTSIDE RECORDS SUMMARY | 2024-11-29 03:46 | XMS_ITS | Clinical Summary ---
Author Organization [facility] Address [address] [place] [address] Phone Care Team Providers Care Mold Burner Name Role Phone Unavailable Primary Care Provider Unavailabl e Allergies No known active allergies Medications atorvastatin (LIPITOR) 20 mg tablet Take 20 mg by mouth daily. Active escitalopram oxalate (LEXAPRO) 20 mg tablet Take 20 mg by mouth daily. Active aspirin (ECOTRIN EC) 81 mg Tablet, Delayed Release (E.C.) Take 81 mg by mouth daily. Active semaglutide (Ozempic) 0.25 mg or 0.5 mg(2 mg/1.5 mL) Pen Injector Inject by subcutaneous injection. Active coenzyme Q10 Capsule Take 200 mg by mouth daily. Active CINNAMON BARK ORAL Take by mouth. Activ e vitamin E 1,000 unit Capsule Take 1,000 Units by mouth daily. Active ascorbic acid, vitamin C, (VITAMIN C) 1,000 mg Tablet Take 1,000 mg by mouth daily. Active Encounters Date Type Department Care Team Description 11/08/2024 External Device Data [facility] ABSTRACTION Provider, Abstract 11/07/2024 External Device Data [facility] ABSTRACTION Provider, Abstract 11/07/2024 External Device Data [facility] ABSTRACTION Provider, Abstract 11/03/2024 8:26 AM CDT Anesthesia Event [facility] [address] [place] [address] Luis Crawford MD 11/03/2024 8:00 AM CDT - 11/03/2024 8:15 AM CDT Surgery [facility] [address] [place] [address] Kori Rosado MD ESOPHAGOGASTRODUODENOSCOPY 11/03/2024 5:57 AM CDT - 11/03/2024 9:13 AM CDT Hospital Encounter [facility] [address] [place] [address] Kori Rosado MD Status post bariatric surgery Discharge Disposition: Home or Self Care from Last 3 Months Social History Tobacco Use Types Packs/Day Years Used Date Smoking Tobacco: Former Cigarettes Tobacco Cessation:Counseling Given: Not Answered Alcohol Use Standard Drinks/Week Comments Yes 0 (1 standard drink = 0.6 oz pur e alcohol) SOCIALLY Feeling Safe Answer Date Recorded Are you in a relationship wi th someone who hurts you emotionally and/or physically? No 11/03/2024 Comments No Sex and Gender Information Value Date Recorded Sex Assigned at Not on file Legal Sex Female 7:41 AM CDT Gender Identity Not on file Sexual Orientation Not on file Last Filed Vital Signs Vital Sign Reading Time Taken Comments Blood Pressure 135/78 11/03/2024 8:55 AM CDT Pulse 58 11/03/2024 8:55 AM CDT Temperature 36.1 C (97 F) 11/03/2024 8:42 AM CDT Respiratory Rate 18 11/03/2024 8:55 AM CDT Oxygen Saturation 98% 11/03/2024 8:55 AM CDT Inhaled Oxygen Concentration - - Weight 117.9 kg (260 lb) 11/03/2024 6:26 AM CDT Height 172.7 cm (5' 8) 11/03/2024 6:26 AM CDT Body Mass Index 39.53 11/03/2024 6:26 AM CDT Plan of Treatment Health Maintenance Due Date Last Done Comments DIABETES ANNUAL FOOT EXAM 1975 DIABETES ANNUAL RETINAL EXAM 1975 DIABETES MICROALBUMIN ANNUAL SCREEN 1975 LDL CHOLESTEROL ANNUAL 1975 FIT-DNA Q 3 years 2002 FIT/FOBT Q 1 year 2002 Flex Sig/CT Colonography Q 5 years 2002 COVID-19 Vaccine (2023-2 5 season) 2024 10/06/2020, 09/16/2020 INFLUENZA VACCINE (#1) 2024 , 03/23/2022, 03/04/2021, Additional history exists DIABETES HBA1C Q 6 MONTHS 04/24/2025 10/23/2024 BREAST CANCER SCREENING 04/25/2025 04/25/20 24, 04/25/2024, 04/20/2023, Additional history exists DTAP/TDAP/TD VACCINES (5 - T d or Tdap) 04/07/2026 04/07/2016, 01/29/2016, 01/29/2016, Additional history exists OSTEOPOROSIS SCREENING 11/23/2028 11/24/2023, 2023 COLORECTAL SCREENING 12/28/2029 12/29/2019 Colorectal Cancer Screening 12/28/2029 RSV VACCINE (60+ or ) (1 - 1-dose 75+ series) 2032 ZOSTER VACCINE Completed 04/30/2022, 02/19/2022 PNEUMOCOCCAL VACCINE 50+ YEARS Completed 11/04/2023 Procedures Procedure Name Priority Date/Time Associated Diagnosis Comments UPPER ENDOSCOPY REPORT 8:38 AM CDT HELICOBACTER PYLORI RAPID UR EASE TEST Routine 11/03/2024 8:28 AM CDT Status post bariatric surgery MA ESOPHAGOGASTRODUODENOSCOP Y TRANSORAL DIAGNOSTIC 11/03/2024 8:00 AM CDT Status post bariatric surgery from Last 3 Months Results * UPPER ENDOSCOPY REPORT (11/03/2024 8:38 AM CDT) Narrative Procedure Note Kori Rosado MD - 11/03/2024 8:38 AM CDT [facility] Patient Name: Lakesha Price Procedure Date: 11/03/2024 Date of : 1955 Attending MD: Kori Rosado MD, Procedure: Upper GI endoscopy Indications: Heartburn Providers: Kori Rosado MD Referring MD: Kori Rosado MD Medicines: Monitored Anesthesia Care Complications: No immediate complications. Procedure: Informed consent was obtained for the procedure, including moderate sedation after risks were discussed. Based on the pre-procedure assessment, including review of the patient's medical history, medications, allergies, and review of systems, the patient was deemed to be an appropriate candidate for sedation. A timeout was performed. Continuous ECG monitoring, pulse oximetry, blood pressure monitoring, and direct observation were performed. The Endoscope was introduced through the mouth, and advanced to the second part of duodenum. The upper GI endoscopy was accomplished without difficulty. The patient tolerated the procedure well. Findings: No gross lesions were noted in the entire esophagus. The Z-line was regular and was found 39 cm from the incisors. No gross lesions were noted in the entire examined stomach. Biopsies were taken with a cold forceps for Helicobacter pylori testing. 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 No gross lesions were noted in the entire examined duodenum. Impression: - No gross lesions in the entire esophagus. - Z-line regular, 39 cm from the incisors. - No gross lesions in the entire stomach. Biopsied. - An adjustable gastric banding was found. - No gross lesions in the entire examined duodenum. Recommendation: - Discharge patient to home (ambulatory). - Return to my office as previously scheduled. Procedure Code(s): --- Professional --- 89665, Esophagogastroduodenoscopy, flexible, transoral; with biopsy, single or multiple CPT copyright 2020 [employer]. All rights reserved. The codes documented in this report are preliminary and upon forge shop machine repairer review may be revised to meet current compliance requirements. Kori Rosado MD 11/03/2024 8:38:01 AM Number of Addenda: 0 [address] [place] [address] Kori Rosado MD GI PROCEDURE ORDERABLES Fi nal Result * HELICOBACTER PYLORI RAPID UREASE TEST (11/03/2024 8:28 AM CDT) H. PYLORI RAPID UREASE TEST Negative Negative 11/04/2024 8:42 AM CDT [facility] Tissue ENTIRE STOMACH / Unknown Collection / Unknown 11/03/2024 8:28 AM CDT 11/03/2024 8:57 AM CDT Kori Rosado MD MICROBIOLOGY - GENERAL ORD ERABLES Final Result [facility]# [id number] [address] [place] [id number] from Last 3 Months Insurance MEDICARE PART A AND B [facility] Address: [address] [address]
--- OUTSIDE RECORDS SUMMARY | 2024-11-29 03:46 | XMS_ITS | Encounter Summary ---
Author Organization [facility] Address [address] [place] [address] Care Team Providers Care Glassware Verifier Name Role Phone Elyssa Liriano MD Primary Care Provider [phone] Encounter Details Date Type Department Care Team (Late st Contact Info) Description 01/06/2024 Telephone [facility] Internal Medicine [address] [phone] Elyssa Liriano MD [address] [place] [address] [address] [place] [address] Social History Tobacco Use Types Packs/Day Years Used Date Smoking Tobacco: Former Cigarettes Q uit: 1983 Passive Smoke Exposure: Past Smokeless Tobacco: Never Alcohol Use Standard Drinks/Week Comments Yes 0 (1 standard drink = 0.6 oz pur e alcohol) socially AUDIT-C Answer Date Recorded Q1: How often do you have a drink containing alc ohol? Monthly or less 11/09/2023 Q2: How many drinks containi ng alcohol do you have on a typical day when you are drinking? 1 or 2 11/09/2023 Q3: How often do you have si x or more drinks on one occasion? Never 11/09/2023 PHQ-2 Answer Date Recorded PHQ-2 Total Score (If total score is 3 or more points, staff should administer the PHQ-9) 0 11/09/2023 Comments No Sex and Gender Information Value Date Recorded Sex Assigned at Not on file Legal Sex Female 1:25 PM CDT Gender Identity Not on file Sexual Orientation Not on file documented as of this encounter Plan of Treatment Not on file documented as of this encounter Visit Diagnoses Not on filedocumented in this encounter Care Teams Glassware Verifier Relationship Specialty Start Date End Date Elyssa Liriano MD [address] [address] [place] [id number] PCP - General 09/10/17 documented as of this encounter
--- OUTSIDE RECORDS SUMMARY | 2024-11-29 03:46 | XMS_ITS | Clinical Summary ---
Author Organization [facility] Address [address] [place] [address] Care Team Providers Care Mining Captain Name Role Phone Elyssa Liriano MD Primary Care Provider [phone] Allergies Active Allergy Reactions Criticality Noted Date [...] 05/05/2024 Assessment & Plan (05/05/2024 11:46 AM ORNAMENTAL IRON WORKER): Patient with memory issues related to minor [...] exam. Assessment & Plan (05/05/2024 11:47 AM ORNAMENTAL IRON WORKER): Patient with new onset diabetes mellitus. We [...] 04/19/2024 Assessment & Plan (05/05/2024 11:47 AM ORNAMENTAL IRON WORKER): Healed Assessment & Plan (04/19/2024 9:15 AM ORNAMENTAL IRON WORKER): Patient with laceration to the left middle [...] 05/07/2022 Assessment & Plan (05/07/2022 4:48 PM ORNAMENTAL IRON WORKER): Patient is mild risk for surgery. She [...] changes. Assessment & Plan (05/05/2024 7:45 AM ORNAMENTAL IRON WORKER): BMI Follow-up includes: nutrition counseling. The patient [...] changes. Assessment & Plan (07/03/2021 11:49 AM ORNAMENTAL IRON WORKER): BMI Follow-up includes: nutrition counseling. The patient [...] 06/07/2020 Assessment & Plan (06/07/2020 2:35 PM ORNAMENTAL IRON WORKER): The patient did have PFTs performed which [...] basis Assessment & Plan (07/03/2021 11:48 AM ORNAMENTAL IRON WORKER): Advised to follow-up with the sleep specialist and use CPAP machine on regular basis Assessment & Plan (03/04/2021 12:46 PM CDT): Patient is followed by the sleep specialist Assessment & Plan (12/03/2020 11:36 AM CDT): Followed by the sleep specialist Assessment & Plan (06/07/2020 2:34 PM ORNAMENTAL IRON WORKER): The patient was diagnosed with ANGÉLICA over 8 years ago and has not used CPAP in recent memory. I will order a home sleep test to confirm the diagnosis and then obtain an auto titrating CPAP unit for her. Assessment & Plan (05/10/2020 10:33 AM ORNAMENTAL IRON WORKER): The patient will need a nocturnal polysomnogram with split night protocol if necessary, no MSLT. If insurance not approve in-lab sleep study the patient may proceed with a home sleep test. The patient would like to hold off on this testing at this time. COVID-19 virus infection 05/10/2020 Assessment & Plan (06/20/2020 4:57 PM ORNAMENTAL IRON WORKER): Managed by the circulation director Assessment & Plan (06/07/2020 2:34 PM ORNAMENTAL IRON WORKER): The patient continues to have a dry cough and her fatigue is still present but improving. Assessment & Plan (05/10/2020 10:33 AM ORNAMENTAL IRON WORKER): I have ordered a PFT, echo and 6 minutes walk test. Varicose veins of both lower extremities 06/04/2 020 Assessment & Plan (10/26/2019 11:13 AM CDT): Asymptomatic Hypertensive kidney disease with stage 2 chronic kidney disease 01/24/2019 Assessment & Plan (10/26/2024 7:30 AM CDT): Continue low-salt diet and encouraged weight loss Assessment & Plan (05/05/2024 7:45 AM ORNAMENTAL IRON WORKER): Continue low-salt diet and encouraged weight loss Assessment & Plan (11/09/2023 11:56 AM CDT): Continue low-salt diet and encouraged weight loss Assessment & Plan (08/28/2022 7:55 AM CDT): Continue low-salt diet and encouraged weight loss Assessment & Plan (05/07/2022 4:26 PM ORNAMENTAL IRON WORKER): Continue low-salt diet Assessment & Plan (01/14/2022 12:35 PM CDT): Controlled without medications. Encouraged low-salt diet and weight loss Assessment & Plan (10/03/2021 10:44 AM CDT): Blood pressure is stable without medications. Discussed the importance of low- salt diet and exercise and weight loss Assessment & Plan (07/03/2021 11:49 AM ORNAMENTAL IRON WORKER): Stable without medications. Continue low-salt diet Assessment [...] exercise. Assessment & Plan (07/26/2019 10:02 AM ORNAMENTAL IRON WORKER): Stable without medications Assessment & Plan (04/26/2019 10:46 AM ORNAMENTAL IRON WORKER): Controlled without medications Assessment & Plan (01/24/2019 10:23 AM CDT): Continue current medications. Discussed low-salt diet. Discussed exercise on regular basis. Will continue to monitor Overweight 01/24/2019 Assessment & Plan (04/26/2019 10:47 AM ORNAMENTAL IRON WORKER): The patient lost more weight with her [...] monitor Assessment & Plan (05/05/2024 7:45 AM ORNAMENTAL IRON WORKER): Renal function is stable. Continue to monitor Assessment & Plan (11/09/2023 11:56 AM CDT): Renal function is stable. Continue to monitor Assessment & Plan (05/07/2022 4:25 PM ORNAMENTAL IRON WORKER): Renal function is stable. Continue to monitor [...] monitor Assessment & Plan (07/26/2019 10:02 AM ORNAMENTAL IRON WORKER): Mild chronic kidney disease with no change Assessment & Plan (04/26/2019 10:46 AM ORNAMENTAL IRON WORKER): Mild chronic kidney disease and will continue [...] Concerta Assessment & Plan (05/07/2022 4:25 PM ORNAMENTAL IRON WORKER): Controlled on Concerta Assessment & Plan (01/14/2022 12:34 PM CDT): Resume Concerta Assessment & Plan (10/03/2021 10:43 AM CDT): Patient stop Concerta and she feels fine without the medication Assessment & Plan (07/03/2021 11:49 AM ORNAMENTAL IRON WORKER): Controlled on Concerta Assessment & Plan (03/04/2021 12:45 PM CDT): Controlled on Concerta Assessment & Plan (12/03/2020 11:36 AM CDT): Controlled on Concerta Assessment & Plan (09/02/2020 11:38 AM CDT): Controlled on Concerta Assessment & Plan (06/20/2020 4:57 PM ORNAMENTAL IRON WORKER): Continue Concerta Assessment & Plan (01/25/2020 12:05 PM CDT): Controlled on Concerta. Assessment & Plan (10/26/2019 11:11 AM CDT): Controlled on Concerta Assessment & Plan (07/26/2019 10:02 AM ORNAMENTAL IRON WORKER): Controlled on Concerta Assessment & Plan (04/26/2019 10:46 AM ORNAMENTAL IRON WORKER): The patient noticed decrease in her attention [...] . Assessment & Plan (05/05/2024 7:45 AM ORNAMENTAL IRON WORKER): Controlled on current medications. Continue low-fat diet. Will continue to monitor . Assessment & Plan (11/09/2023 11:56 AM CDT): Controlled on current medications. Continue low-fat diet. Will continue to monitor . Assessment & Plan (08/28/2022 7:55 AM CDT): Controlled on current medications. Continue low-fat diet. Will continue to monitor . Assessment & Plan (05/07/2022 4:25 PM ORNAMENTAL IRON WORKER): Controlled on current medications. Continue low-fat diet. Will continue to monitor . Assessment & Plan (01/14/2022 12:34 PM CDT): Controlled on current medications. Continue low-fat diet. Will continue to monitor . Assessment & Plan (10/03/2021 10:17 AM CDT): Controlled on current medications. Continue low-fat diet. Will continue to monitor . Assessment & Plan (07/03/2021 11:49 AM ORNAMENTAL IRON WORKER): Controlled on current medications. Continue low-fat diet. [...] . Assessment & Plan (06/20/2020 4:57 PM ORNAMENTAL IRON WORKER): Controlled on current medications. Continue low-fat diet. Will continue to monitor . Assessment & Plan (01/25/2020 12:05 PM CDT): Controlled on current medications. Continue low-fat diet. Will continue to monitor . Assessment & Plan (10/26/2019 11:12 AM CDT): Controlled on current medications. Continue low-fat diet. Will continue to monitor . Assessment & Plan (07/26/2019 10:40 AM ORNAMENTAL IRON WORKER): LDL is 68. We will lower atorvastatin to 20 mg q.h.s.. Assessment & Plan (04/26/2019 10:46 AM ORNAMENTAL IRON WORKER): Controlled on current medications. Continue low-fat diet. Will continue to monitor . Assessment & Plan (01/24/2019 10:22 AM CDT): Controlled on current medications. Continue low-fat diet. Will continue to monitor . Assessment & Plan (10/21/2018 12:49 PM CDT): Controlled on current medications. Continue low-fat diet. Will continue to monitor . Encounters Date Type Department Care Team Description 10/26/2024 10:30 AM CDT Office Visit [facility] Internal Medicine [address] [place] [address] [place] [phone] Elyssa Liriano MD CKD (chronic kidney disease), stage II (Primary Dx); Dyslipidemia; Hypertensive kidney disease with stage 2 chronic kidney disease; Morbid obesity with BMI of 40.0-44.9, adult (HCC); ANGÉLICA (obstructive sleep apnea); Type 2 diabetes mellitus with stage 2 chronic kidney disease, without long-term current use of insulin (HCC); BMI 39.0-39.9,adult from Last 3 Months Immunizations Immunization Administration Dates Next Due DTaP [...] (Arexvy) 01/18/2024 Tdap 01/29/2016,01/01/2006 ZOSTER Recombinant 04/30/2022,02/19/2022 Surgical History Surgery Date Site/Laterality Comments CA DELIVERY ONLY Section - (Added by TW Conv) CA TOTAL ABDOMINAL HYSTERECT W/WO RMVL TUBE OVARY Hysterectomy - (Added by TW Conv) BACK SURGERY Back Surgery - Cage (Added by TW Conv) CA LAPS GASTRIC RESTRICTIVE PROCEDURE PLACE DEVICE Laparosc Restrictive Proc Adjustable Gastric Band Placement - (Added by TW Conv) TONSILLECTOMY BUNIONECTOMY SECTION BARIATRIC SURGERY HYSTERECTOMY Total Medical History Medical History Date Comments Personal history of other en docrine, nutritional and metabolic disease History of hyperlipi demia - (Added by TW Conv) Personal history of other di seases of the musculoskeletal system and connective tissue History of degenerative disc disease - (Added by TW Conv) ADD (attention deficit disorder) HLD (hyperlipidemia) CKD (chronic kidney disease), stage II Major depressive disorder, s lalita episode, unspecified Family History Medical History Relation Name Comments Cancer Father Stroke Father Breast cancer Mother Cancer Mother Diabetes Mother Breast cancer Sister Relation Name Status Comments Father Mother Sister Social History Tobacco Use Types Packs/Day Years [...] on file Sexual Orientation Not on file Obstetrics History Para Term AB IAB SAB Ectopic Multiple Livin g Live Births 2 2 2 Date Outcome GA Total Labor Labor/2nd/3rd Weight Sex Type Anes PTL Tennille A1 A5 Name Clin Term Term Last Filed Vital Signs Vital Sign Reading [...] 10/26/2024 10:12 AM CDT Plan of Treatment Health Maintenance Due Date Last Done Comments Dilated Eye Exam 1957 Foot Exam 1957 Hepatitis B Screening 1975 Covid-19 Vaccine (2023-2 5 season) 2024 10/06/2020, 09/16/2020 Hemoglobin A1C 04/24/2025 10/23/2024, 04/23, 01/02/2015, Additional history exists Breast Cancer Screening-Mammogram 04/25/2025 04/25/2024, 04/20/2023, 01/19/2022, Additional history exists Depression Screening 05/05/2025 05/05/2024, 04/19/2024, 11/09/2023, Additional history exists Fall Risk Assessment 05/05/2025 05/05/2024, 11/09/2023, 11/26/2022, Additional history exists Well Visit 65+ 05/05/2025 05/05/2024 Albumin Creatinine Ratio, Urine 10/23/2025 , 05/03/2024 Lipid Panel 10/23/2025 10/23/2024, 09/2023, 08/27/2022, Additional history exists eGFR 10/23/2025 10/23/2024, 09/2023, 08/27/2022, Additional history exists Osteoporosis Screening-Bone Density Scan 11/23/2025 11/24/2023 DTaP/Tdap/Td Vaccine (5 - Td or Tdap) 04/07/2026 04/07/2016, 01/29/2016, 01/29/2016, Additional history exists Colon Cancer Screening-Colonoscopy 12/28/2029 12/29/2019, 12/06/2007, 06/22/1999 Cervical Cancer Screening Discontinued 07/10/2014, 06/2014 Colon Cancer Screening-CT Colonography Discontinued 12/29/2019, 12/06/2007, 06/22/1999 Colon Cancer Screening-DNA Stool Discontinued 12/29/2019, 12/06/2007, 06/22/1999 Colon Cancer Screening-FIT Discontinued 12/28, 12/06/2007, 06/22/1999 Colon Cancer Screening-Sigmoidoscopy Discontinued 12/29/2019, 12/06/2007, 06/22/1999 Hepatitis C Screening Completed 03/04/2021 Zoster Vaccine Completed 04/30/2022, 02/19/2022 Pneumococcal vaccine 65+ Completed 11/04/2023 Influenza Vaccine Completed 01/18/2024, , 03/04/2021, Additional history exists Procedures Procedure Name Priority Date/Time Associated Diagnosis [...] Read Routine (OP Routine) 04/25/2024 7:20 AM ORNAMENTAL IRON WORKER Screening mammogram for breast cancer DEXA AXIAL SKELETON BONE DENSITY 1 OR MORE SITES Schedule Routine, Read Routine (OP Routine) 11/24/2023 11:16 AM CDT Postmenopausal HEPATITIS C ANTIBODY Routine 03/04/2021 11:16 AM CDT Encounter for hepatitis C screening test for low risk patient COLONOSCOPY Routine 12/29/2019 THINPREP PAP Routine 07/10/2014 2:00 PM ORNAMENTAL IRON WORKER from Last 3 Months or Most Recently [...] BLOOD ORDERABLES Final Result Performing Organization Address [facility] Co de Phone Number [facility] [address] [place] [address] * Albumin Creatinine Ratio, Urine (10/23/2024 9:44 AM CDT) Pathologist [facility] Creatinine, ur 174 20 - 275 mg/dL [...] URINE ORDERABLES Final Result Performing Organization Address City/[facility]/ZIP Co de Phone Number [facility] [address] [place] [address] * Erythrocyte sedimentation rate (10/23/2024 9:44 AM CDT) Erythrocyte sedimentation rate 2 < OR = 30 mm/h [facility] 10/23/2024 9:44 AM CDT 10/23/2024 9:45 AM CDT Narrative [facility] - 10/24/2024 8:42 AM CDT FASTING:YES FASTING: YES Elyssa Liriano MD LAB BLOOD ORDERABLES Final Result Performing Organization Address [facility] Co de Phone Number [facility] [address] [place] [address] * TSH (10/23/2024 9:44 AM CDT) Pathologist [facility] TSH 1.22 0.40 - 4.50 mIU/L [facility] 10/23/2024 9:44 AM CDT 10/23/2024 9:45 AM CDT Narrative [facility] - 10/24/2024 8:42 AM CDT FASTING:YES FASTING: YES Elyssa Liriano MD LAB BLOOD ORDERABLES Final Result Performing Organization Address [facility] de Phone Number [facility] [address] [place] [address] * T4, free (10/23/2024 9:44 AM CDT) Pathologist [facility] Free T4 1.1 0.8 - 1.8 ng/dL [facility] 10/23/2024 9:44 AM CDT 10/23/2024 9:45 AM CDT Narrative [facility] - 10/24/2024 8:42 AM CDT FASTING:YES FASTING: YES Elyssa Liriano MD LAB BLOOD ORDERABLES Final Result Performing Organization Address City/[facility]/ZIP Co de Phone Number [facility] [address] [place] [address] * (ABNORMAL) Hemoglobin A1c (10/23/2024 9:44 AM CDT) [facility] Hgb A1C 6.5(H) <5.7 % of total Hgb [facility] Comment: For someone without known diabetes, [...] LAB BLOOD ORDERABLES Final Result [facility] [address] [place] [address] * Vitamin B12 (10/23/2024 9:44 AM CDT) [facility] Vitamin B12 428 200 - 1,100 pg/mL [facility] 10/23/2024 9:44 AM CDT 10/23/2024 9:45 AM CDT Narrative [facility] - 10/24/2024 8:42 AM CDT FASTING:YES FASTING: YES Elyssa Liriano MD LAB BLOOD ORDERABLES Final Result [facility] [address] [place] [address] * (ABNORMAL) Lipid panel (10/23/2024 9:44 AM CDT) [facility] Cholesterol 164 <200 mg/dL [facility] [...] equation in the estimation of LDL-C. Eusebio SS et al. DIMPLE. 2013;310(19): 7152-4802 (http://education.FlixChip/faq/UBE463) Chol/HDL ratio 3.1 <5.0 (calc) [facility] [...] LAB BLOOD ORDERABLES Final Result [facility] [address] [place] [address] * (ABNORMAL) Comprehensive metabolic panel (10/23/2024 9:44 AM CDT) [facility] Glucose 157(H) 65 - 99 mg/dL [facility] [...] MD LAB BLOOD ORDERABLES Final Result [facility] [address] [place] [address] * Screening Mammogram Bilateral W Jose Carlos (04/25/2024 7:20 AM ORNAMENTAL IRON WORKER) Anatomical Region Laterality Modality Breast Bilateral Mammography Impressions 04/25/2024 8:54 AM ORNAMENTAL IRON WORKER BI-RADS ATLAS category (overall): 1 - Negative There is no mammographic evidence of malignancy. A 1 year screening mammogram is recommended. The patient has been or will be contacted. We recommend annual screening mammography for women at average risk of breast cancer beginning at age 40, based on guidelines of the [employer] (ACR Practice Parameter for the Performance of Screening and Diagnostic Mammography) and [employer]. For women with and elevated risk of breast cancer, please refer to the ACR Practice Parameter for specific screening recommendations. The patient will be entered into a reminder system with a target due date of 1 year for her next screening exam. Narrative 04/25/2024 8:54 AM ORNAMENTAL IRON WORKER Screening Mammogram Bilateral W Jose Carlos: 04/25/24 [...] been no suspicious change. Elyssa Liriano MD IMG MAMMO PROCEDURES Final Result * Dexa Axial [...] alcoholic drinks per day. Patient takes vitamin-D. Electrical Prospecting Engineer/Model: [employer] A (S/N [id number]) CLINICAL INFORMATION: Current height: 68 inches Maximum [...] Zoya Andre M.D. TW: TW Report ID: [id number] Reading Location: [id number] Procedure Note Zoya Andre MD - 11/24/2023 EXAM DESCRIPTION: DEXA AXIAL SKELETON BONE DENSITY 1 OR MORE SITES REASON FOR STUDY: 68 y/o year old F with given history of: Post menopausal status. History of parent with hip fracture and 3+ alcoholic drinks per day. Patient takes vitamin-D. Electrical Prospecting Engineer/Model: [employer] A (S/N [id number]) CLINICAL INFORMATION: Current height: 68 inches Maximum [...] Zoya Andre M.D. TW: TW Report ID: [id number] Reading Location: [id number] Elyssa Liriano MD IMG DXA PROCEDURES Final Re sult * Hepatitis C antibody (03/04/2021 11:16 AM CDT) Hep C Ab Nonreactive Nonreactive [facility]OV[facility] Comment: Interpretive Data Nonreactive: Antibodies to HCV [...] - GENERAL ORDERABLES Edited Result - Final [facility] [address] [facility] Department [place] [address] * Colonoscopy (12/29/2019) Anatomical Region Laterality Modality Other Narrative 12/29/[address] David repeat in 10 years Historical Provider ENDOSCOPY PROCEDURES Meka l Result * ThinPrep Pap (07/10/2014 2:00 PM ORNAMENTAL IRON WORKER) Thin Prep Pap Smear SEE BELOW () 07/16 4:35 PM ORNAMENTAL IRON WORKER [facility] HISTORICAL RESULTS Comment: Inspector Chief ThinPrep Cytology Final Report ThinPrep Pap Specimen Source Cervix/Endocervix Specimen Adequacy Satisfactory for interpretation, endocervical cells (transformation zone) not present. Interpretation Negative for intraepithelial lesion or malignancy. 07/16/14 Truck Loader And Unloader: LUKE Luevano(ASCP) 07/16/14 Verified By: LUKE Luevano(ASCP) electronic signature [facility], Department of Pathology For questions regarding this case, call ext. [phone] CPT Code(s) 55070 Clinical History Clinical Information: LMP: N : N : N IUD: N Hormone Therapy: N Postmenopausal: N Previous surgery date and type: N Hysterectomy: N Chemotherapy: N JUAN Exposure: N Radiation: N Previous Abnormal Pap? Details: N Diagnostic or Screening Pap Test: Screening Performed by [facility], [address] [place] [id number] [email or web address], Jose C Olivares MD - Lab. Director 07/10/2014 2:00 PM ORNAMENTAL IRON WORKER 07/10/2014 3:20 PM ORNAMENTAL IRON WORKER us Elyssa Liriano MD LAB PATHOLOGY ORDERABLES Fi nal Result [employer] HISTORICAL RESULTS from Last 3 Months or Most Recently Relevant to Health Maintenance Insurance MEDICARE [employer] [place] [employer] [place] MEDICARE Care Teams Mining Captain Relationship Specialty Start Date End Date Elyssa Liriano MD [address] [facility] [address] [place] [address] PCP - General 09/10/17
--- OUTSIDE RECORDS SUMMARY | 2024-11-29 03:46 | XMS_ITS | Encounter Summary ---
Author Organization [facility] Facility Care Team Providers Care Paperhanger Pipe Name Role Phone Elyssa Liriano MD Primary Care Provider [phone] Encounter Details Date Type Department Care Team (Latest Contact Info) Description 10/20/2017 Orders Only [facility] CLINCONV Provider, MD Alicia [address] [place] [address] Social History Tobacco Use Types Packs/Day [...] COVID: Suspected 03/28/2020 03/28/2020 03/29/2020 10:26 AM AUTOMATED MANUFACTURING INSTRUCTOR COVID19 03/28/2020 03/28/2020 04/11/2020 3:07 AM AUTOMATED MANUFACTURING INSTRUCTOR COVID: Recovered Comment:Added based on recent COVID infection. 04/11/2020 04/11/2020 08/09/2020 3:05 AM C DT documented as of this encounter Care Teams Paperhanger Pipe Relationship Specialty Start Date End Date Elyssa Liriano MD [address] [place] [address] PCP - General 09/10/17 documented as of this encounter
[2024-11-29 04:01] VITALS: BP 152/78; PULSE 68; RESP 20; O2SAT 99
[2024-11-29 04:15] VITALS: BP 154/85; PULSE 72; RESP 16; TEMP 37.2; O2SAT 100
[2024-11-29 04:21] LABS: Hematocrit 49.1 % (37.0-47.0); Hemoglobin 15.6 g/dL (12.0-15.0); Immature Granulocyte Percent A 0.5 % (0-0.5); Lymphocytes Absolute Auto 2.83 K/mm3 (0.9-3.2); Mean Corpuscular HGB Conc 31.8 g/dl (32-36); Mean Corpuscular Hemoglobin 28.5 pg (26-34); Mean Corpuscular Volume 89.8 fl (80-100); Nucleated Red Blood Cells Absolute Auto 0.000 K/mm3 (0.0-0.012); Nucleated Red Blood Cells Perc 0.0 % (0.0-0.2); Platelet Count Result 185 k/mm3 (150-375); Red Blood Count 5.47 M/mm3 (4.2-5.4); White Blood Count 14.9 K/mm3 (4.5-10.0)
--- OUTSIDE RECORDS SUMMARY | 2024-11-29 04:25 | XMS_ITS | Encounter Summary ---
Author Organization [facility] Facility Care Team Providers Care Clinical Program Manager Name Role Phone Elyssa Liriano MD Primary Care Provider [phone] Encounter Details Date Type Department Care Team (Latest Contact Info) Description 09/17/2015 Orders Only [facility] CLINCONV Provider, MD Alicia [address] [place] [address] Social History Tobacco Use Types Packs/Day [...] COVID: Suspected 03/28/2020 03/28/2020 03/29/2020 10:26 AM RADIO ENGINEERING TEACHER COVID19 03/28/2020 03/28/2020 04/11/2020 3:07 AM RADIO ENGINEERING TEACHER COVID: Recovered Comment:Added based on recent COVID infection. 04/11/2020 04/11/2020 08/09/2020 3:05 AM C DT documented as of this encounter Care Teams Clinical Program Manager Relationship Specialty Start Date End Date Elyssa Liriano MD [address] [facility] [address] [address] [place] [address] PCP - General 09/10/17 documented as of this encounter
--- OUTSIDE RECORDS SUMMARY | 2024-11-29 04:25 | XMS_ITS | Encounter Summary ---
Author Organization [facility] Facility Care Team Providers Care Equipment Lead Name Role Phone Elyssa Liriano MD Primary Care Provider [phone] Encounter Details Date Type Department Care Team (Latest Contact Info) Description 09/02/2016 Orders Only [facility] CLINCONV Provider, MD Alicia [address] [place] [address] Social History Tobacco Use Types Packs/Day [...] COVID: Suspected 03/28/2020 03/28/2020 03/29/2020 10:26 AM ASSESSMENT TECHNICIAN COVID19 03/28/2020 03/28/2020 04/11/2020 3:07 AM ASSESSMENT TECHNICIAN COVID: Recovered Comment:Added based on recent COVID infection. 04/11/2020 04/11/2020 08/09/2020 3:05 AM C DT documented as of this encounter Care Teams Equipment Lead Relationship Specialty Start Date End Date Elyssa Liriano MD [address] [facility] [address] [address] [place] [address] PCP - General 09/10/17 documented as of this encounter
--- OUTSIDE RECORDS SUMMARY | 2024-11-29 04:25 | XMS_ITS | Clinical Summary ---
Author Organization [facility] Address [address] [place] [address] Care Team Providers Care Recycling Center Operator Name Role Phone Elyssa Liriano MD Primary Care Provider [phone] Allergies No known active allergies Medications methylphenidate [...] on file Legal Sex Female 2:46 PM ASSISTANT NURSE MANAGER Gender Identity Not on file Sexual Orientation Not on file Last Filed Vital Signs Vital Sign Reading Time Taken Comments Blood Pressure 112/56 05/29/2022 12:23 PM ASSISTANT NURSE MANAGER Pulse 63 05/29/2022 12:23 PM ASSISTANT NURSE MANAGER Temperature 36.7 C (98 F) 05/29/2022 12:23 PM ASSISTANT NURSE MANAGER Respiratory Rate 16 05/29/2022 12:23 PM ASSISTANT NURSE MANAGER Oxygen Saturation 92% 05/29/2022 12:23 PM ASSISTANT NURSE MANAGER Inhaled Oxygen Concentration - - Weight 124.4 kg (274 lb 4 oz) 05/29/2022 9:00 AM ASSISTANT NURSE MANAGER Height 172.7 cm (5' 8) 05/29/2022 9:00 AM ASSISTANT NURSE MANAGER Body Mass Index 41.7 05/29/2022 9:00 AM ASSISTANT NURSE MANAGER Plan of Treatment Health Maintenance Due Date [...] patient's age to complete this topic Insurance [facility] BLUE [facility] MEDICARE [facility] Care Teams Recycling Center Operator Relationship Specialty Start Date End Date Elyssa Liriano MD [address] [facility] [facility] [facility] [facility] [place] [address] PCP - General INTERNAL MEDICINE 05/13/22
--- OUTSIDE RECORDS SUMMARY | 2024-11-29 04:26 | XMS_ITS | Encounter Summary ---
Author Organization [facility] Care Team Providers Care Display Director Name Role Phone Elyssa Liriano MD Primary Care Provider [phone] Encounter Details Date Type Department Care Team (Latest Contact Info) Description 10/20/2017 Orders Only MMG CLINCONV Provider, MD Alicia [address] [place] [address] Social History Tobacco Use Types Packs/Day [...] COVID: Suspected 03/28/2020 03/28/2020 03/29/2020 10:26 AM INJECTION WAX MOLDER COVID19 03/28/2020 03/28/2020 04/11/2020 3:07 AM INJECTION WAX MOLDER COVID: Recovered Comment:Added based on recent COVID infection. 04/11/2020 04/11/2020 08/09/2020 3:05 AM C DT documented as of this encounter Care Teams Display Director Relationship Specialty Start Date End Date Elyssa Liriano MD [address] [place] [address] PCP - General 09/10/17 documented as of this encounter
--- OUTSIDE RECORDS SUMMARY | 2024-11-29 04:26 | XMS_ITS | Referral Summary ---
Author Organization [facility] Address [address] [place] [phone] Care Team Providers Care Payment Analyst Name Role Phone Elyssa Liriano MD Primary Care Provider [phone] Encounters Date Type Department Care Team Description 10/26/2024 10:30 AM CDT Office Visit [facility] Internal Medicine [address] [place] [address] [address] [place] [address] Elyssa Liriano MD CKD (chronic kidney disease), stage II (Primary Dx); Dyslipidemia; Hypertensive kidney disease with stage 2 chronic kidney disease; Morbid obesity with BMI of 40.0-44.9, adult ([facility]); ANGÉLICA (obstructive sleep apnea); Type 2 diabetes mellitus with stage 2 chronic kidney disease, without long-term current use of insulin ([facility]); BMI 39.0-39.9,adult from Last 3 Months Allergies [...] 05/05/2024 Assessment & Plan (05/05/2024 11:46 AM TRACK RIDER): Patient with memory issues related to minor [...] exam. Assessment & Plan (05/05/2024 11:47 AM TRACK RIDER): Patient with new onset diabetes mellitus. We [...] 04/19/2024 Assessment & Plan (05/05/2024 11:47 AM TRACK RIDER): Healed Assessment & Plan (04/19/2024 9:15 AM TRACK RIDER): Patient with laceration to the left middle [...] 05/07/2022 Assessment & Plan (05/07/2022 4:48 PM TRACK RIDER): Patient is mild risk for surgery. She [...] changes. Assessment & Plan (05/05/2024 7:45 AM TRACK RIDER): BMI Follow-up includes: nutrition counseling. The patient [...] changes. Assessment & Plan (07/03/2021 11:49 AM TRACK RIDER): BMI Follow-up includes: nutrition counseling. The patient [...] 06/07/2020 Assessment & Plan (06/07/2020 2:35 PM TRACK RIDER): The patient did have PFTs performed which [...] basis Assessment & Plan (07/03/2021 11:48 AM TRACK RIDER): Advised to follow-up with the sleep specialist and use CPAP machine on regular basis Assessment & Plan (03/04/2021 12:46 PM CDT): Patient is followed by the sleep specialist Assessment & Plan (12/03/2020 11:36 AM CDT): Followed by the sleep specialist Assessment & Plan (06/07/2020 2:34 PM TRACK RIDER): The patient was diagnosed with ANGÉLICA over 8 years ago and has not used CPAP in recent memory. I will order a home sleep test to confirm the diagnosis and then obtain an auto titrating CPAP unit for her. Assessment & Plan (05/10/2020 10:33 AM TRACK RIDER): The patient will need a nocturnal polysomnogram with split night protocol if necessary, no MSLT. If insurance not approve in-lab sleep study the patient may proceed with a home sleep test. The patient would like to hold off on this testing at this time. COVID-19 virus infection 05/10/2020 Assessment & Plan (06/20/2020 4:57 PM TRACK RIDER): Managed by the temporary help agency referral clerk Assessment & Plan (06/07/2020 2:34 PM TRACK RIDER): The patient continues to have a dry cough and her fatigue is still present but improving. Assessment & Plan (05/10/2020 10:33 AM TRACK RIDER): I have ordered a PFT, echo and 6 minutes walk test. Varicose veins of both lower extremities 020 Assessment & Plan (10/26/2019 11:13 AM CDT): Asymptomatic Hypertensive kidney disease with stage 2 chronic kidney disease 01/24/2019 Assessment & Plan (10/26/2024 7:30 AM CDT): Continue low-salt diet and encouraged weight loss Assessment & Plan (05/05/2024 7:45 AM TRACK RIDER): Continue low-salt diet and encouraged weight loss Assessment & Plan (11/09/2023 11:56 AM CDT): Continue low-salt diet and encouraged weight loss Assessment & Plan (08/28/2022 7:55 AM CDT): Continue low-salt diet and encouraged weight loss Assessment & Plan (05/07/2022 4:26 PM TRACK RIDER): Continue low-salt diet Assessment & Plan (01/14/2022 12:35 PM CDT): Controlled without medications. Encouraged low-salt diet and weight loss Assessment & Plan (10/03/2021 10:44 AM CDT): Blood pressure is stable without medications. Discussed the importance of low- salt diet and exercise and weight loss Assessment & Plan (07/03/2021 11:49 AM TRACK RIDER): Stable without medications. Continue low-salt diet Assessment [...] exercise. Assessment & Plan (07/26/2019 10:02 AM TRACK RIDER): Stable without medications Assessment & Plan (04/26/2019 10:46 AM TRACK RIDER): Controlled without medications Assessment & Plan (01/24/2019 10:23 AM CDT): Continue current medications. Discussed low-salt diet. Discussed exercise on regular basis. Will continue to monitor Overweight 01/24/2019 Assessment & Plan (04/26/2019 10:47 AM TRACK RIDER): The patient lost more weight with her [...] monitor Assessment & Plan (05/05/2024 7:45 AM TRACK RIDER): Renal function is stable. Continue to monitor Assessment & Plan (11/09/2023 11:56 AM CDT): Renal function is stable. Continue to monitor Assessment & Plan (05/07/2022 4:25 PM TRACK RIDER): Renal function is stable. Continue to monitor [...] monitor Assessment & Plan (07/26/2019 10:02 AM TRACK RIDER): Mild chronic kidney disease with no change Assessment & Plan (04/26/2019 10:46 AM TRACK RIDER): Mild chronic kidney disease and will continue [...] Concerta Assessment & Plan (05/07/2022 4:25 PM TRACK RIDER): Controlled on Concerta Assessment & Plan (01/14/2022 12:34 PM CDT): Resume Concerta Assessment & Plan (10/03/2021 10:43 AM CDT): Patient stop Concerta and she feels fine without the medication Assessment & Plan (07/03/2021 11:49 AM TRACK RIDER): Controlled on Concerta Assessment & Plan (03/04/2021 12:45 PM CDT): Controlled on Concerta Assessment & Plan (12/03/2020 11:36 AM CDT): Controlled on Concerta Assessment & Plan (09/02/2020 11:38 AM CDT): Controlled on Concerta Assessment & Plan (06/20/2020 4:57 PM TRACK RIDER): Continue Concerta Assessment & Plan (01/25/2020 12:05 PM CDT): Controlled on Concerta. Assessment & Plan (10/26/2019 11:11 AM CDT): Controlled on Concerta Assessment & Plan (07/26/2019 10:02 AM TRACK RIDER): Controlled on Concerta Assessment & Plan (04/26/2019 10:46 AM TRACK RIDER): The patient noticed decrease in her attention [...] . Assessment & Plan (05/05/2024 7:45 AM TRACK RIDER): Controlled on current medications. Continue low-fat diet. Will continue to monitor . Assessment & Plan (11/09/2023 11:56 AM CDT): Controlled on current medications. Continue low-fat diet. Will continue to monitor . Assessment & Plan (08/28/2022 7:55 AM CDT): Controlled on current medications. Continue low-fat diet. Will continue to monitor . Assessment & Plan (05/07/2022 4:25 PM TRACK RIDER): Controlled on current medications. Continue low-fat diet. Will continue to monitor . Assessment & Plan (01/14/2022 12:34 PM CDT): Controlled on current medications. Continue low-fat diet. Will continue to monitor . Assessment & Plan (10/03/2021 10:17 AM CDT): Controlled on current medications. Continue low-fat diet. Will continue to monitor . Assessment & Plan (07/03/2021 11:49 AM TRACK RIDER): Controlled on current medications. Continue low-fat diet. [...] . Assessment & Plan (06/20/2020 4:57 PM TRACK RIDER): Controlled on current medications. Continue low-fat diet. Will continue to monitor . Assessment & Plan (01/25/2020 12:05 PM CDT): Controlled on current medications. Continue low-fat diet. Will continue to monitor . Assessment & Plan (10/26/2019 11:12 AM CDT): Controlled on current medications. Continue low-fat diet. Will continue to monitor . Assessment & Plan (07/26/2019 10:40 AM TRACK RIDER): LDL is 68. We will lower atorvastatin to 20 mg q.h.s.. Assessment & Plan (04/26/2019 10:46 AM TRACK RIDER): Controlled on current medications. Continue low-fat diet. [...] Read Routine (OP Routine) 04/25/2024 7:20 AM TRACK RIDER Screening mammogram for breast cancer DEXA AXIAL SKELETON BONE DENSITY 1 OR MORE SITES Schedule Routine, Read Routine (OP Routine) 11/24/2023 11:16 AM CDT Postmenopausal HEPATITIS C ANTIBODY Routine 03/04/2021 11:16 AM CDT Encounter for hepatitis C screening test for low risk patient COLONOSCOPY Routine 12/29/2019 THINPREP PAP Routine 07/10/2014 2:00 PM TRACK RIDER from Last 3 Months or Most Recently [...] LAB BLOOD ORDERABLES Final Result [facility] [address] [place] [address] * Albumin Creatinine Ratio, Urine (10/23/2024 9:44 AM CDT) Pathologist [facility] Creatinine, ur 174 20 - 275 mg/dL [...] URINE ORDERABLES Final Result Performing Organization Address [facility] de Phone Number [facility] [address] [place] [address] * Erythrocyte sedimentation rate (10/23/2024 9:44 AM CDT) Erythrocyte sedimentation rate 2 < OR = 30 mm/h [facility] 10/23/2024 9:44 AM CDT 10/23/2024 9:45 AM CDT Narrative [facility] - 10/24/2024 8:42 AM CDT FASTING:YES FASTING: YES Elyssa Liriano MD LAB BLOOD ORDERABLES Final Result Performing Organization Address [facility] de Phone Number [facility] [address] [place] [address] * TSH (10/23/2024 9:44 AM CDT) TSH 1.22 0.40 - 4.50 mIU/L [facility] 10/23/2024 9:44 AM CDT 10/23/2024 9:45 AM CDT Narrative [facility] - 10/24/2024 8:42 AM CDT FASTING:YES FASTING: YES Elyssa Liriano MD LAB BLOOD ORDERABLES Final Result Performing Organization Address [facility]/ZIP Co de Phone Number [facility] [address] [address] [facility] [place], [place] [address] * T4, free (10/23/2024 9:44 AM CDT) [facility] T4 1.1 0.8 - 1.8 ng/dL [facility] 10/23/2024 9:44 AM CDT 10/23/2024 9:45 AM CDT Narrative [facility] - 10/24/2024 8:42 AM CDT FASTING:YES FASTING: YES Elyssa Liriano MD LAB BLOOD ORDERABLES Final Result Performing Organization Address [facility] Co de Phone Number [facility] [address] [place] [address] * (ABNORMAL) Hemoglobin A1c (10/23/2024 9:44 AM CDT) [facility] Hgb A1C 6.5(H) <5.7 % of total Hgb [facility] Comment: For someone without known diabetes, [...] Liriano MD LAB BLOOD ORDERABLES Final Result [facility] [address] [place] [address] * Vitamin B12 (10/23/2024 9:44 AM CDT) Vitamin B12 428 200 - 1,100 pg/mL [facility] 10/23/2024 9:44 AM CDT 10/23/2024 9:45 AM CDT Narrative [facility] - 10/24/2024 8:42 AM CDT FASTING:YES FASTING: YES Elyssa Liriano MD LAB BLOOD ORDERABLES Final Result [facility] [address] [facility] [place] [address] * (ABNORMAL) Lipid panel (10/23/2024 9:44 AM CDT) Pathologist [facility] Cholesterol 164 <200 mg/dL [facility] [...] LDL-C. Eusebio LAY et al. DIMPLE. 2013;310(19): 8783-8570 (http://education.[employer].mSchool/faq/UYI024) Chol/HDL ratio 3.1 <5.0 (calc) [facility] [...] LAB BLOOD ORDERABLES Final Result [facility] [address] [place] [address] * (ABNORMAL) Comprehensive metabolic panel (10/23/2024 9:44 [...] MD LAB BLOOD ORDERABLES Final Result [facility] [address] [facility] [place] [address] * Screening Mammogram Bilateral W Jose Carlos (04/25/2024 7:20 AM TRACK RIDER) Anatomical Region Laterality Modality Breast Bilateral Mammography Impressions 04/25/2024 8:54 AM TRACK RIDER BI-RADS ATLAS category (overall): 1 - Negative There is no mammographic evidence of malignancy. A 1 year screening mammogram is recommended. The patient has been or will be contacted. We recommend annual screening mammography for women at average risk of breast cancer beginning at age 40, based on guidelines of the [employer] (ACR Practice Parameter for the Performance of Screening and Diagnostic Mammography) and [employer]. For women with and elevated risk of breast cancer, please refer to the ACR Practice Parameter for specific screening recommendations. The patient will be entered into a reminder system with a target due date of 1 year for her next screening exam. Narrative 04/25/2024 8:54 AM TRACK RIDER Screening Mammogram Bilateral W Jose Carlos: 04/25/24 [...] alcoholic drinks per day. Patient takes vitamin-D. Long Term/Model: Listnerd A (S/N [id number]) CLINICAL INFORMATION: Current height: 68 inches Maximum [...] by Zoya Andre M.D. TW: Report ID: [id number] Reading Location: [place] [address] Procedure Note Zoya Andre MD - 11/24/2023 EXAM DESCRIPTION: DEXA AXIAL SKELETON BONE DENSITY 1 OR MORE SITES REASON FOR STUDY: 68 y/o year old F with given history of: Post menopausal status. History of parent with hip fracture and 3+ alcoholic drinks per day. Patient takes vitamin-D. Long Term/Model: Hologic Horizon A (S/N [id number]) CLINICAL INFORMATION: Current height: 68 inches Maximum [...] Zoya Andre M.D. TW: TW Report ID: [id number] Reading Location: [id number] Elyssa Liriano MD IM[facility]aqu[facility] DXA PROCEDURES Final Re sult * Hepatitis C antibody (03/04/2021 11:16 AM CDT) Pathologist [facility] Hep C Ab Nonreactive Nonreactive [facility]TE Comment: [...] GENERAL ORDERABLES Edited Result - Final LIZZ[facility]TE [address] [facility] Department [place] [address] * Colonoscopy (12/29/2019) Anatomical Region Laterality Modality Other Narrative 12/29/[address] David repeat in 10 years Historical Provider ENDOSCOPY PROCEDURES Meka l Result * ThinPrep Pap (07/10/2014 2:00 PM TRACK RIDER) Thin Prep Pap Smear SEE BELOW () 07/16 4:35 PM TRACK RIDER [facility] HISTORICAL RESULTS Comment: Integration Engineer ThinPrep Cytology Final Report ThinPrep Pap Specimen Source Cervix/Endocervix Specimen Adequacy Satisfactory for interpretation, endocervical cells (transformation zone) not present. Interpretation Negative for intraepithelial lesion or malignancy. 07/16/14 Office Automation Clerk: LUKE Luevano([facility]) 07/16/14 Verified By: LUKE Luevano([facility]) electronic signature [facility], Department of Pathology For questions regarding this case, call ext. [phone] CPT Code(s) 32000 Clinical History Clinical Information: LMP: N : N : N IUD: N Hormone Therapy: N Postmenopausal: N Previous surgery date and type: N Hysterectomy: N Chemotherapy: N JUAN Exposure: N Radiation: N Previous Abnormal Pap? Details: N Diagnostic or Screening Pap Test: Screening Performed by [facility], [address] [place] [id number] [email or web address], Jose C Olivares MD - Lab. Director 07/10/2014 2:00 PM TRACK RIDER 07/10/2014 3:20 PM TRACK RIDER us Elyssa Liriano MD LAB PATHOLOGY ORDERABLES Fi nal Result [facility] HISTORICAL RESULTS from Last 3 Months or Most Recently Relevant to Health Maintenance Insurance MEDICARE MUTUAL [facility] [place] [address] MEDICARE Care Teams Payment Analyst Relationship Specialty Start Date End Date Elyssa Liriano MD [address] [facility] [address] [place] [address] [place] [address] PCP - General 09/10/17
--- OUTSIDE RECORDS SUMMARY | 2024-11-29 04:26 | XMS_ITS | Encounter Summary ---
Author Organization [facility] Care Team Providers Care Care Management Coordinator Name Role Phone Elyssa Liriano MD Primary Care Provider [phone] Encounter Details Date Type Department Care Team (Latest Contact Info) Description 06/09/2018 Orders Only [facility] CLINCONV ProviderAlicia MD [address] [place] [address] Social History Tobacco Use Types Packs/Day [...] Comments CARDIOLOGY REPORT 06/13/2018 12: 00 AM PLUMBER CARDIOLOGY REPORT 06/10/2018 12: 00 AM PLUMBER documented in this encounter Results * CARDIOLOGY REPORT (06/13/2018 12:00 AM PLUMBER) Anatomical Region Laterality Modality Other Narrative 06/13/2018 12:00 AM PLUMBER Ordered by an unspecified provider. Historical Provider MD [facility] PROCE DURES Final Result * CARDIOLOGY REPORT (06/10/2018 12:00 AM PLUMBER) Anatomical Region Laterality Modality Other Narrative 06/10/2018 12:00 AM PLUMBER Ordered by an unspecified provider. Historical Provider MD [facility] PROCE DURES Final Result documented in this encounter Visit Diagnoses Not on filedocumented in this encounter Additional Health Concerns Infection Onset Date Last Indicated Resolved Time COVID: Suspected 12/18/2019 12/18/2019 01/01/2020 3:05 AM CDT COVID: Suspected 03/28/2020 03/28/2020 03/29/2020 10:26 AM PLUMBER COVID19 03/28/2020 03/28/2020 04/11/2020 3:07 AM PLUMBER COVID: Recovered Comment:Added based on recent COVID infection. 04/11/2020 04/11/2020 08/09/2020 3:05 AM C DT documented as of this encounter Care Teams Care Management Coordinator Relationship Specialty Start Date End Date Elyssa Liriano MD [address] [facility] [facility] [facility] [address] [place] [address] [place] [address] PCP - General 09/10/17 documented as of this encounter
--- OUTSIDE RECORDS SUMMARY | 2024-11-29 04:26 | XMS_ITS | Clinical Summary ---
Author Organization [facility] Address [address] [address] Phone Care Team Providers Care Compounder Name Role Phone Unavailable Primary Care Provider [...] Abstract 11/03/2024 8:26 AM CDT Anesthesia Event [facility] [address] [place] [address] Luis Crawford MD 11/03/2024 8:00 AM CDT - 11/03/2024 8:15 AM CDT Surgery [facility] [address] [place] [address] Kori Rosado MD ESOPHAGOGASTRODUODENOSCOPY 11/03/2024 5:57 AM CDT - 11/03/2024 9:13 AM CDT Hospital Encounter [facility] [address] [place] [address] Kori Rosado MD Status post [...] 8:28 AM CDT Status post bariatric surgery GA ESOPHAGOGASTRODUODENOSCOP Y TRANSORAL DIAGNOSTIC 11/03/2024 8:00 AM CDT Status post bariatric surgery from Last 3 Months Results * UPPER ENDOSCOPY REPORT (11/03/2024 8:38 AM CDT) Narrative Procedure Note Kori Rosado MD - 11/03/2024 8:38 AM CDT [facility] Patient Name: Lakesha Price Procedure Date: [...] previously scheduled. Procedure Code(s): --- Professional --- 19825, Esophagogastroduodenoscopy, flexible, transoral; with biopsy, single or multiple CPT copyright 2020 [employer]. All rights reserved. The codes documented in this report are preliminary and upon automotive worker foreman review may be revised to meet current compliance requirements. Kori Rosado MD 11/03/2024 8:38:01 AM Number of Addenda: [id number] [place] [address] Kori Rosado MD GI PROCEDURE ORDERABLES Fi nal Result * HELICOBACTER PYLORI RAPID UREASE TEST (11/03/2024 8:28 AM CDT) H. PYLORI RAPID UREASE TEST Negative Negative 11/04/2024 8:42 AM CDT [facility] Tissue ENTIRE STOMACH / Unknown Collection / Unknown 11/03/2024 8:28 AM CDT 11/03/2024 8:57 AM CDT Kori Rosado MD MICROBIOLOGY - GENERAL ORD ERABLES Final Result [facility]# [id number] [address] [place] [id number] from Last 3 Months Insurance MEDICARE PART A AND B [facility]
--- OUTSIDE RECORDS SUMMARY | 2024-11-29 04:26 | XMS_ITS | Clinical Summary ---
Author Organization [facility] Office Center Address [address] [place] [address] Care Team Providers Care Willower Name Role Phone Elyssa Liriano MD Primary Care Provider [phone] Allergies Active Allergy Reactions Criticality Noted Date [...] 05/05/2024 Assessment & Plan (05/05/2024 11:46 AM PER DIEM): Patient with memory issues related to minor [...] exam. Assessment & Plan (05/05/2024 11:47 AM PER DIEM): Patient with new onset diabetes mellitus. We [...] 04/19/2024 Assessment & Plan (05/05/2024 11:47 AM PER DIEM): Healed Assessment & Plan (04/19/2024 9:15 AM PER DIEM): Patient with laceration to the left middle [...] 05/07/2022 Assessment & Plan (05/07/2022 4:48 PM PER DIEM): Patient is mild risk for surgery. She [...] changes. Assessment & Plan (05/05/2024 7:45 AM PER DIEM): BMI Follow-up includes: nutrition counseling. The patient [...] changes. Assessment & Plan (07/03/2021 11:49 AM PER DIEM): BMI Follow-up includes: nutrition counseling. The patient [...] 06/07/2020 Assessment & Plan (06/07/2020 2:35 PM PER DIEM): The patient did have PFTs performed which [...] basis Assessment & Plan (07/03/2021 11:48 AM PER DIEM): Advised to follow-up with the sleep specialist and use CPAP machine on regular basis Assessment & Plan (03/04/2021 12:46 PM CDT): Patient is followed by the sleep specialist Assessment & Plan (12/03/2020 11:36 AM CDT): Followed by the sleep specialist Assessment & Plan (06/07/2020 2:34 PM PER DIEM): The patient was diagnosed with ANGÉLICA over 8 years ago and has not used CPAP in recent memory. I will order a home sleep test to confirm the diagnosis and then obtain an auto titrating CPAP unit for her. Assessment & Plan (05/10/2020 10:33 AM PER DIEM): The patient will need a nocturnal polysomnogram with split night protocol if necessary, no MSLT. If insurance not approve in-lab sleep study the patient may proceed with a home sleep test. The patient would like to hold off on this testing at this time. COVID-19 virus infection 05/10/2020 Assessment & Plan (06/20/2020 4:57 PM PER DIEM): Managed by the philosophy faculty Assessment & Plan (06/07/2020 2:34 PM PER DIEM): The patient continues to have a dry cough and her fatigue is still present but improving. Assessment & Plan (05/10/2020 10:33 AM PER DIEM): I have ordered a PFT, echo and 6 minutes walk test. Varicose veins of both lower extremities 06/04/2 020 Assessment & Plan (10/26/2019 11:13 AM CDT): Asymptomatic Hypertensive kidney disease with stage 2 chronic kidney disease 01/24/2019 Assessment & Plan (10/26/2024 7:30 AM CDT): Continue low-salt diet and encouraged weight loss Assessment & Plan (05/05/2024 7:45 AM PER DIEM): Continue low-salt diet and encouraged weight loss Assessment & Plan (11/09/2023 11:56 AM CDT): Continue low-salt diet and encouraged weight loss Assessment & Plan (08/28/2022 7:55 AM CDT): Continue low-salt diet and encouraged weight loss Assessment & Plan (05/07/2022 4:26 PM PER DIEM): Continue low-salt diet Assessment & Plan (01/14/2022 12:35 PM CDT): Controlled without medications. Encouraged low-salt diet and weight loss Assessment & Plan (10/03/2021 10:44 AM CDT): Blood pressure is stable without medications. Discussed the importance of low- salt diet and exercise and weight loss Assessment & Plan (07/03/2021 11:49 AM PER DIEM): Stable without medications. Continue low-salt diet Assessment [...] exercise. Assessment & Plan (07/26/2019 10:02 AM PER DIEM): Stable without medications Assessment & Plan (04/26/2019 10:46 AM PER DIEM): Controlled without medications Assessment & Plan (01/24/2019 10:23 AM CDT): Continue current medications. Discussed low-salt diet. Discussed exercise on regular basis. Will continue to monitor Overweight 01/24/2019 Assessment & Plan (04/26/2019 10:47 AM PER DIEM): The patient lost more weight with her [...] monitor Assessment & Plan (05/05/2024 7:45 AM PER DIEM): Renal function is stable. Continue to monitor Assessment & Plan (11/09/2023 11:56 AM CDT): Renal function is stable. Continue to monitor Assessment & Plan (05/07/2022 4:25 PM PER DIEM): Renal function is stable. Continue to monitor [...] monitor Assessment & Plan (07/26/2019 10:02 AM PER DIEM): Mild chronic kidney disease with no change Assessment & Plan (04/26/2019 10:46 AM PER DIEM): Mild chronic kidney disease and will continue [...] Concerta Assessment & Plan (05/07/2022 4:25 PM PER DIEM): Controlled on Concerta Assessment & Plan (01/14/2022 12:34 PM CDT): Resume Concerta Assessment & Plan (10/03/2021 10:43 AM CDT): Patient stop Concerta and she feels fine without the medication Assessment & Plan (07/03/2021 11:49 AM PER DIEM): Controlled on Concerta Assessment & Plan (03/04/2021 12:45 PM CDT): Controlled on Concerta Assessment & Plan (12/03/2020 11:36 AM CDT): Controlled on Concerta Assessment & Plan (09/02/2020 11:38 AM CDT): Controlled on Concerta Assessment & Plan (06/20/2020 4:57 PM PER DIEM): Continue Concerta Assessment & Plan (01/25/2020 12:05 PM CDT): Controlled on Concerta. Assessment & Plan (10/26/2019 11:11 AM CDT): Controlled on Concerta Assessment & Plan (07/26/2019 10:02 AM PER DIEM): Controlled on Concerta Assessment & Plan (04/26/2019 10:46 AM PER DIEM): The patient noticed decrease in her attention [...] . Assessment & Plan (05/05/2024 7:45 AM PER DIEM): Controlled on current medications. Continue low-fat diet. Will continue to monitor . Assessment & Plan (11/09/2023 11:56 AM CDT): Controlled on current medications. Continue low-fat diet. Will continue to monitor . Assessment & Plan (08/28/2022 7:55 AM CDT): Controlled on current medications. Continue low-fat diet. Will continue to monitor . Assessment & Plan (05/07/2022 4:25 PM PER DIEM): Controlled on current medications. Continue low-fat diet. Will continue to monitor . Assessment & Plan (01/14/2022 12:34 PM CDT): Controlled on current medications. Continue low-fat diet. Will continue to monitor . Assessment & Plan (10/03/2021 10:17 AM CDT): Controlled on current medications. Continue low-fat diet. Will continue to monitor . Assessment & Plan (07/03/2021 11:49 AM PER DIEM): Controlled on current medications. Continue low-fat diet. [...] . Assessment & Plan (06/20/2020 4:57 PM PER DIEM): Controlled on current medications. Continue low-fat diet. Will continue to monitor . Assessment & Plan (01/25/2020 12:05 PM CDT): Controlled on current medications. Continue low-fat diet. Will continue to monitor . Assessment & Plan (10/26/2019 11:12 AM CDT): Controlled on current medications. Continue low-fat diet. Will continue to monitor . Assessment & Plan (07/26/2019 10:40 AM PER DIEM): LDL is 68. We will lower atorvastatin to 20 mg q.h.s.. Assessment & Plan (04/26/2019 10:46 AM PER DIEM): Controlled on current medications. Continue low-fat diet. Will continue to monitor . Assessment & Plan (01/24/2019 10:22 AM CDT): Controlled on current medications. Continue low-fat diet. Will continue to monitor . Assessment & Plan (10/21/2018 12:49 PM CDT): Controlled on current medications. Continue low-fat diet. Will continue to monitor . Encounters Date Type Department Care Team Description 10/26/2024 10:30 AM CDT Office Visit [facility] Internal Medicine [address] [place] [address] [place] [phone] Elyssa Liriano MD CKD (chronic kidney [...] 04/30/2022,02/19/2022 Surgical History Surgery Date Site/Laterality Comments [place] DELIVERY ONLY Section - (Added by TW Conv) [place] TOTAL ABDOMINAL HYSTERECT W/WO RMVL TUBE OVARY Hysterectomy - (Added by TW Conv) BACK SURGERY Back Surgery - [place] (Added by TW Conv) [place] LAPS GASTRIC RESTRICTIVE PROCEDURE PLACE DEVICE Laparosc [...] Read Routine (OP Routine) 04/25/2024 7:20 AM PER DIEM Screening mammogram for breast cancer DEXA AXIAL SKELETON BONE DENSITY 1 OR MORE SITES Schedule Routine, Read Routine (OP Routine) 11/24/2023 11:16 AM CDT Postmenopausal HEPATITIS C ANTIBODY Routine 03/04/2021 11:16 AM CDT Encounter for hepatitis C screening test for low risk patient COLONOSCOPY Routine 12/29/2019 THINPREP PAP Routine 07/10/2014 2:00 PM PER DIEM from Last 3 Months or Most Recently [...] BLOOD ORDERABLES Final Result Performing Organization Address [facility] Co de Phone Number [facility] [address] [place] [address] * Albumin Creatinine Ratio, Urine (10/23/2024 9:44 AM CDT) Pathologist [facility] Creatinine, ur 174 20 - 275 mg/dL [...] URINE ORDERABLES Final Result Performing Organization Address City/[facility]/ZIP Co de Phone Number [facility] [address] [place] [address] * Erythrocyte sedimentation rate (10/23/2024 9:44 AM CDT) Erythrocyte sedimentation rate 2 < OR = 30 mm/h [facility] 10/23/2024 9:44 AM CDT 10/23/2024 9:45 AM CDT Narrative [facility] - 10/24/2024 8:42 AM CDT FASTING:YES FASTING: YES Elyssa Liriano MD LAB BLOOD ORDERABLES Final Result Performing Organization Address [facility] Co de Phone Number [facility] [address] [place] [address] * TSH (10/23/2024 9:44 AM CDT) Pathologist [facility] TSH 1.22 0.40 - 4.50 mIU/L [facility] 10/23/2024 9:44 AM CDT 10/23/2024 9:45 AM CDT Narrative [facility] - 10/24/2024 8:42 AM CDT FASTING:YES FASTING: YES Elyssa Liriano MD LAB BLOOD ORDERABLES Final Result Performing Organization Address [facility] de Phone Number [facility] [address] [place] [address] * T4, free (10/23/2024 9:44 AM CDT) Pathologist [facility] Free T4 1.1 0.8 - 1.8 ng/dL [facility] 10/23/2024 9:44 AM CDT 10/23/2024 9:45 AM CDT Narrative [facility] - 10/24/2024 8:42 AM CDT FASTING:YES FASTING: YES Elyssa Liriano MD LAB BLOOD ORDERABLES Final Result Performing Organization Address City/[facility]/ZIP Co de Phone Number [facility] [address] [place] [address] * (ABNORMAL) Hemoglobin A1c (10/23/2024 9:44 AM CDT) [facility] Hgb A1C 6.5(H) <5.7 % of [...] LAB BLOOD ORDERABLES Final Result [facility] [address] [place] [address] * Vitamin B12 (10/23/2024 9:44 AM CDT) [facility] Vitamin B12 428 200 - 1,100 pg/mL [facility] 10/23/2024 9:44 AM CDT 10/23/2024 9:45 AM CDT Narrative [facility] - 10/24/2024 8:42 AM CDT FASTING:YES FASTING: YES Elyssa Liriano MD LAB BLOOD ORDERABLES Final Result [facility] [address] [place] [address] * (ABNORMAL) Lipid panel (10/23/2024 9:44 AM CDT) [facility] Cholesterol 164 <200 mg/dL [facility] [...] LDL-C. Eusebio SS et al. DIMPLE. 2013;310(19): 1712-2300 (http://education.Rayspan/faq/ILJ383) Chol/HDL ratio 3.1 <5.0 (calc) [facility] [...] LAB BLOOD ORDERABLES Final Result [facility] [address] [place] [address] * (ABNORMAL) Comprehensive metabolic panel (10/23/2024 9:44 AM CDT) [facility] Glucose 157(H) 65 - 99 mg/dL [...] BLOOD ORDERABLES Final Result [facility] [address] [address] [place] [address] * Screening Mammogram Bilateral W Jose Carlos (04/25/2024 7:20 AM PER DIEM) Anatomical Region Laterality Modality Breast Bilateral Mammography Impressions 04/25/2024 8:54 AM PER DIEM BI-RADS ATLAS category (overall): 1 - Negative There is no mammographic evidence of malignancy. A 1 year screening mammogram is recommended. The patient has been or will be contacted. We recommend annual screening mammography for women at average risk of breast cancer beginning at age 40, based on guidelines of the [employer] (ACR Practice Parameter for the Performance of Screening and Diagnostic Mammography) and [employer]. For women with and elevated risk of breast cancer, please refer to the ACR Practice Parameter for specific screening recommendations. The patient will be entered into a reminder system with a target due date of 1 year for her next screening exam. Narrative 04/25/2024 8:54 AM PER DIEM Screening Mammogram Bilateral W Jose Carlos: 04/25/24 [...] Jose Carlos 08/26/2017 Screening Mammogram Bilateral W Joes Carlos BREAST TISSUE: There are scattered areas [...] alcoholic drinks per day. Patient takes vitamin-D. Physician Obstetrician/Model: [employer] A ([id number]/N [id number]) CLINICAL INFORMATION: Current height: 68 inches Maximum [...] Zoya Andre M.D. TW: TW Report ID: [id number] Reading Location: [id number] Procedure Note Zoya Andre MD - 11/24/2023 EXAM DESCRIPTION: DEXA AXIAL SKELETON BONE DENSITY 1 OR MORE SITES REASON FOR STUDY: 68 y/o year old F with given history of: Post menopausal status. History of parent with hip fracture and 3+ alcoholic drinks per day. Patient takes vitamin-D. Physician Obstetrician/Model: [employer] A ([id number]/N [id number]) CLINICAL INFORMATION: Current height: 68 inches Maximum [...] Zoya Andre M.D. TW: TW Report ID: [id number] Reading Location: [id number] Elyssa Liriano MD IMG DXA PROCEDURES Final [...] - GENERAL ORDERABLES Edited Result - Final [facility] [address] [facility] Department [place] [address] * Colonoscopy (12/29/2019) Anatomical Region Laterality Modality Other Narrative 12/29/[address] David repeat in 10 years Historical Provider ENDOSCOPY PROCEDURES Meka l Result * ThinPrep Pap (07/10/2014 2:00 PM PER DIEM) Thin Prep Pap Smear SEE BELOW () 07/16 4:35 PM PER DIEM [facility] HISTORICAL RESULTS Comment: Solar [employer] ThinPrep Cytology Final Report ThinPrep Pap Specimen Source Cervix/Endocervix Specimen Adequacy Satisfactory for interpretation, endocervical cells (transformation zone) not present. Interpretation Negative for intraepithelial lesion or malignancy. 07/16/14 Project Control Manager: LUKE Luevano(ASCP) 07/16/14 Verified By: LUKE Luevano(ASCP) electronic signature [facility], Department of Pathology For questions regarding this case, call ext. [phone] CPT Code(s) 60805 Clinical History Clinical Information: LMP: N : N : N IUD: N Hormone Therapy: N Postmenopausal: N Previous surgery date and type: N Hysterectomy: N Chemotherapy: N JUAN Exposure: N Radiation: N Previous Abnormal Pap? Details: N Diagnostic or Screening Pap Test: Screening Performed by [facility], [address] [place] [id number] [email or web address] Jose C Olivares MD - Lab. Director 07/10/2014 2:00 PM PER DIEM 07/10/2014 3:20 PM PER DIEM us Elyssa Liriano MD LAB PATHOLOGY ORDERABLES Fi nal Result [facility] HISTORICAL RESULTS from Last 3 Months or Most Recently Relevant to Health Maintenance Insurance MEDICARE [facility] Care Teams Willower Relationship Specialty Start Date End Date Elyssa Liriano MD [address] [place] [address] [place] [id number] PCP - General 09/10/17
--- OUTSIDE RECORDS SUMMARY | 2024-11-29 04:26 | XMS_ITS | Encounter Summary ---
Author Organization [facility] Healthcare Address [address] [place] [address] Care Team Providers Care Slab Tripper Name Role Phone Elyssa Liriano MD Primary Care Provider [phone] Encounter Details Date Type Department Care Team (Late st Contact Info) Description 01/06/2024 Telephone [facility] Medical [facility] Internal Medicine [address] [address] Elyssa Liriano MD [address] [place] [address] [address] [place] [address] Social History Tobacco Use Types [...] on filedocumented in this encounter Care Teams Slab Tripper Relationship Specialty Start Date End Date Elyssa Liriano MD [address] [place] [address] [place] [id number] PCP - General 09/10/17 documented as of this encounter
--- OUTSIDE RECORDS SUMMARY | 2024-11-29 04:26 | XMS_ITS | Encounter Summary ---
Author Organization [facility] Care Team Providers Care Nozzleman Name Role Phone Elyssa Liriano MD Primary Care Provider [phone] Encounter Details Date Type Department Care Team (Latest Contact Info) Description 09/29/2017 Orders Only [facility] CLINCONV Provider, MD Alicia [address] [place] [phone] Social History Tobacco Use Types Packs/Day [...] COVID: Suspected 03/28/2020 03/28/2020 03/29/2020 10:26 AM PROJECT FACILITATOR COVID19 03/28/2020 03/28/2020 04/11/2020 3:07 AM PROJECT FACILITATOR COVID: Recovered Comment:Added based on recent COVID infection. 04/11/2020 04/11/2020 08/09/2020 3:05 AM C DT documented as of this encounter Care Teams Nozzleman Relationship Specialty Start Date End Date Elyssa Liriano MD [address] [facility] [address] [place] [id number] PCP - General 09/10/17 documented as of this encounter
[2024-11-29 04:39] LABS: Alanine Aminotransferase 30 U/L (6-35); Albumin Level 4.5 g/dL (3.5-5.1); Alkaline Phosphatase 65 U/L (38-126); Anion Gap 9 mmol/L (4-12); Aspartate Amino Transferase 38 U/L (14-36); Bilirubin,Total 0.5 mg/dL (0.2-1.3); Blood Urea Nitrogen 18 mg/dL (7-17); Calcium 9.8 mg/dL (8.4-10.2); Carbon Dioxide 25 mmol/L (22-30); Chloride 103 mmol/L (98-107); Estimated CRCL calculation 73 ml/min; Estimated Glomerular Filt Rate > 60; Glucose 158 mg/dL (65-110); Lipase 101 U/L (23-300); Magnesium 2.1 mg/dL (1.6-2.3); Potassium 4.1 mmol/L (3.4-5.0); Sodium 137 mmol/L (137-145); Total Protein 7.8 g/dL (6.3-8.2)
[2024-11-29] MEDS: SODIUM CHLORIDE 0.9% IV 1,000 ML 999 ML IV CONT (04:46)
[2024-11-29 05:05] LABS: Add Urine Microscopic? YES
[2024-11-29 05:08] LABS: Appearance Urine Turbid (Clear); Specific Grav Ur 1.030 (1.001-1.035)
[2024-11-29 05:09] LABS: Glucose Urine UA Negative (Negative); Leukocyte Esterase Ur Negative LEU/UL (Negative); Nitrate Urine Negative (Negative)
--- NOTE | 2024-11-29 05:43 | ED_ITS ---
HPI - Female Genitourinary General Chief complaint: Urogenital-Female Stated complaint: URINARY FREQ, HEMATURIA Time Seen by Provider: 11/29/24 03:47 History of Present Illness HPI Narrative: Patient is a 69-year-old female who presents emergency department this evening complaining of hematuria. Patient states that she got up in the middle out to go pee and noticed that there was blood in her urine. Patient admits to dysuria as well, denies any flank pain, admits to mild suprapubic pressure. Denies any history of kidney stones or frequent urinary tract infections. Denies any recent illness, fevers or chills. There are no additional modifying, alleviating, or precipitating factors at this time. Related Data Allergies Allergy/AdvReac Type Severity Reaction Status Date / Time No Known Allergies Allergy Verified 11/29/24 05:01 Review of Systems 2 Review of Systems: All systems are reviewed and are negative unless stated otherwise in the HPI. Exam 2 Narrative: General: Alert, awake, afebrile, in no acute distress. HEENT: PERRL, no rhinorrhea, no post nasal drip, oropharynx clear. Neck: Trachea midline, no JVD, no lymphadenopathy. Cardiovascular: Regular rate and rhythm, no murmurs, rubs or gallops, no peripheral edema. Respiratory: Clear to auscultation bilaterally, no tachypnea, no wheezing, no rhonchi, no rubs, no respiratory distress. Abdomen: Soft, nontender, nondistended, no rebound, no guarding, no peritoneal signs. Musculoskeletal: No joint swelling or deformity, normal muscle tone. Skin: No rashes or petechia, no signs of infection. Psychiatric: Alert and oriented, normal behavior and judgment for situation. Neurological: Alert and oriented to person, place, and time. Follows all commands. No focal deficits, speech is clear and fluent. Course Vital Signs Vital signs: Vital Signs Pulse Rate 68 11/29/24 04:01 Respiratory Rate 20 11/29/24 04:01 Blood Pressure 152/78 H 11/29/24 04:01 Pulse Oximetry 99 11/29/24 04:01 Temperature 98.9 F 11/29/24 04:15 Pulse Rate 72 11/29/24 04:15 Respiratory Rate 16 11/29/24 04:15 Blood Pressure 154/85 H 11/29/24 04:15 Pulse Oximetry 100 11/29/24 04:15 Oxygen Delivery Room Air 11/29/24 04:15 MDM - Female Genitourinary MDM Narrative Medical decision making narrative: The patient was evaluated by myself in the emergency department. History is obtained from patient who is an independent historian and physical exam was performed. External medical records were reviewed at this time. IV was established and pertinent tests were ordered. Patient was administered 1 L IV fluid bolus with normal saline. Laboratory results obtained revealing a leukocytosis of 14.9, otherwise unremarkable. Urinalysis revealed 3+ blood, greater than 100 RBCs and 1+ bacteria. Imaging studies obtained included CT abdomen pelvis with IV contrast which was independently interpreted by me revealing acute cystitis otherwise no acute process, which is pending final radiology interpretation. At this time, patient was administered 1 g of IV Rocephin and informed that she will be sent home on an oral antibiotic. Differential diagnosis considerations include urinary tract infection/pyelonephritis/cystitis, bladder cancer. Comorbidities impacting this visit include min. I have evaluated and discussed social determinants of health with the patient that could potentially impact subsequent diagnosis and treatment plans. On repeat assessment of the patient, reevaluation revealed that the patient is doing well and is in no acute distress. Patient symptoms have improved since she arrived to our emergency department. Repeat vital signs were all reviewed and noted to be stable. Differential diagnosis and treatment plan were discussed with the patient at bedside. Patient agrees with discussion and after shared medical decision making agrees with discharge. All questions were answered to the patient's satisfaction. Patient will follow up with her PCP in 3-5 days. Script for cephalexin was sent to patient's pharmacy to take as prescribed for her cystitis. Patient was provided with strict return precautions and instructed to return to the emergency department if any new or worsening symptoms develop. The patient was discharged in stable condition. Lab Data 11/29/24 04:11 11/29/24 04:11 Labs: Lab Results 11/29/24 11/29/24 Range/Units 04:11 04:40 WBC 14.9 H (4.5-10.0) K/mm3 RBC 5.47 H (4.2-5.4) M/mm3 Hgb 15.6 H (12.0-15.0) g/dL Hct 49.1 H (37.0-47.0) % MCV 89.8 (80-100) fl MCH 28.5 (26-34) pg MCHC 31.8 L (32-36) g/dl RDW 14.2 (11.5-14.5) % Plt Count 185 (150-375) k/mm3 MPV 11.9 H (7.4-10.4) fl Immature Gran % (Auto) 0.5 (0-0.5) % Neut % (Auto) 66.9 (45.5-73.1) % Lymph % (Auto) 19.0 (18.3-44.2) % [place] % (Auto) 8.5 (2.6-8.5) % Eos % (Auto) 4.6 H (0-4.4) % Baso % (Auto) 0.5 (0.2-1.2) % Lymph # (Auto) 2.83 (0.9-3.2) K/mm3 [place] # (Auto) 1.3 H (0.1-0.6) K/mm3 Eos # (Auto) 0.7 H (0-0.3) K/mm3 Baso # (Auto) 0.1 (0.0-0.1) K/mm3 Abs Immat Gran (auto) 0.07 H (0.00-0.031) K/mm3 Absolute Neuts (auto) 10.0 H (1.3-6.7) K/mm3 Absolute Nucleated RBC 0.000 (0.0-0.012) K/mm3 Nucleated RBC % 0.0 (0.0-0.2) % Sodium 137 (137-145) mmol/L Potassium 4.1 (3.4-5.0) mmol/L Chloride 103 (98-107) mmol/L Carbon Dioxide 25 (22-30) mmol/L Anion Gap 9 (4-12) mmol/L BUN 18 H (7-17) mg/dL Creatinine 0.89 (0.7-1.0) mg/dL Estim Creat Clear Calc 73 ml/min Estimated GFR > 60 (59 - ) Glucose 158 H (65-110) mg/dL Calcium 9.8 (8.4-10.2) mg/dL Magnesium 2.1 (1.6-2.3) mg/dL Total Bilirubin 0.5 (0.2-1.3) mg/dL AST 38 H (14-36) U/L ALT 30 (6-35) U/L Alkaline Phosphatase 65 (38-126) U/L Total Protein 7.8 (6.3-8.2) g/dL Albumin 4.5 (3.5-5.1) g/dL Lipase 101 (23-300) U/L Urine Color Dark red H (Yellow) Urine Appearance Turbid H (Clear) Urine pH 6.0 (5.0-9.0) Ur Specific [place] 1.030 (1.001-1.035) Urine Protein 3+ H (Negative) mg/dL Urine Glucose (UA) Negative (Negative) mg/dL Urine Ketones Negative (Negative) mg/dL Ur Blood (Man) 3+ H (Negative) Urine Nitrate Negative (Negative) Urine Bilirubin 1+ H (Negative) Urine Urobilinogen 0.2 (<2.0) mg/dL Leukocyte Esterase Rfl Negative (Negative) MAX/UL Urine RBC >100 H (0-2) /hpf Urine WBC 0-5 (0-3) /hpf Ur Squamous Epith Cells Few (Few) /hpf Urine Bacteria 1+ H (None) /hpf Discharge Plan Discharge Clinical Impression: Hematuria, Cystitis Patient Disposition: Home Condition: Improved Instructions: Antibiotic Form, Urinary Tract Infection in Women (DC), Hematuria (ED) Additional Instructions: Please follow-up with your family doctor within the next 3-5 days. Return to the emergency department if any new or worsening symptoms develop. Take the prescribed antibiotic as instructed for your bladder infection. Patient Language: Greenlandic Prescriptions: New cephalexin 500 mg capsule 500 mg PO Q12H 7 Days Qty: 14 0RF Follow-up/Referrals: Deandra,Elyssa Garcia MD [Primary Care Provider] - 3 Days Time of Disposition: 05:51
[2024-11-29 06:00] VITALS: BP 152/78; PULSE 68; RESP 16; O2SAT 95
[2024-11-29] MEDS: cefTRIAXone 1 GM in SODIUM CHLORIDE 0.9% IV 50 ML 100 ML IVPB (06:04)
[2024-11-29 06:56] VITALS: BP 152/78; PULSE 73; RESP 16; TEMP 36.8; O2SAT 94
== END 2024-11-29 06:30 | disposition home or self-care (01) ==
PROVIDERS: Emergency Provider Emergency Medicine; PCP Internal Medicine
DX: N30.01 Acute cystitis with hematuria (principal)
CPT/HCPCS: 36415; 74177; 80053; 81001; 83690; 83735; 85025; 96361; 96365; 99284; J0696; J7030; Q9967